=== PATIENT | male | born 1950 | race Two or more races ===

== ENCOUNTER 2024-09-30 11:35 | Emergency (ER) | payer OTHER, SELFPAY ==
--- NOTE | ~2024-09-30 | XR_ITS ---
EXAMINATION: XR CHEST 2 VIEWS HISTORY: cough COMPARISON: There are no prior studies available for comparison. FINDINGS: PA and lateral views of the chest are submitted. There is a calcified granuloma in the right upper lobe. The lungs are otherwise clear. There is no pleural effusion, pneumothorax, or pulmonary vascular congestion. The heart is normal in size. The bones are intact. There are surgical clips in the right upper quadrant. There is a partially visualized aortic stent graft. XR/XR chest 2V IMPRESSION: Right upper lobe granuloma. The lungs are otherwise clear. Electronically signed by: Ronal Whelan MD 09/30/2024 12:08 PM EDT
[2024-09-30 11:42] VITALS: BP 125/73; PULSE 81; RESP 16; TEMP 36.9; O2SAT 98; BMI 28.9
--- NOTE | 2024-09-30 11:47 | ED_ITS ---
HPI - General Adult General Chief complaint: Upper Respiratory Symptoms Stated complaint: Fever, body aches Time Seen by Provider: 09/30/24 14:35 Source: patient, family and healthcare interpreter Mode of arrival: ambulatory Limitations: no limitations History of Present Illness ED Provider: DR. Miles HPI narrative: 74-year-old male a presented with 3 days of nonproductive coughing, body ache, chest tightness, subjective fever. No sick contacts, no recent travel, no lower extremity swelling or tenderness. Related Data Previous Rx's ?Medication ?Instructions ?Recorded albuterol sulfate 90 mcg/actuation 2 inh inhalation Q4 -6H PRN 09/30/24 breath activated powder inhaler shortness of breath or wheezing #1 (ProAir RespiClick) ea azithromycin 250 mg tablet See Rx Instructions PO .COM PLEX #6 09/30/24 (Zithromax) tabs prednisone 20 mg tablet 20 mg PO BID #10 tabs Allergies Allergy/AdvReac Type Severity Reaction Status Date / Time No Known Allergies Allergy Verified 09/30/24 11:47 Review of Systems 2 Review of Systems: All other systems are reviewed and are negative Constitutional: Reports as per HPI and Reports no additional constitutional complaints Eyes: Reports as per HPI and Reports no additional eye complaints Reports system reviewed and no additional complaints, except as documented Cardiovascular: Reports as per HPI and Reports no additional cardiovascular complaints Respiratory: Reports as per HPI and Reports no additional respiratory complaints Gastrointestinal: Reports as per HPI and Reports no additional gastrointestinal complaints Genitourinary: Reports no additional female genitourinary complaints Musculoskeletal: Reports no additional musculoskeletal complaints Skin/Breast: Reports system reviewed and no additional complaints, except as docu Psychiatric: Reports no additional psychiatric complaints Endocrine: Reports no additional endocrine complaints Hematologic/Lymphatic: Reports no additional hematologic/lymphatic complaints Allergic/Immunologic: Reports no additional allergic/immunologic complaints Reports system reviewed and no additional complaints, except as documented and Reports Abnormal speech present [facility] Social History Social History Advance Directives: No Advance Directives Information Provided: Yes Do you have a plan to hurt others: No Plan Physical Exam ED Vital Signs: Vital Signs - 24 hr 09/30/24 11:42 09/30/24 20:00 Temperature 98.5 F 98.2 F Pulse Rate 81 73 Respiratory Rate 16 16 Blood Pressure 125/73 140/86 H Pulse Oximetry 98 98 Oxygen Delivery Method Room Air Room Air BMI result Body Mass Index 28.9 Vital signs have been reviewed and appear to be correct. Blood pressure elevated. Heart rate normal. Respiratory rate normal. Temperature normal. Oxygen saturation normal. Appearance: Alert. Oriented X3. No acute distress. Head: Normal external exam. Normocephalic. Atraumatic. No Olmedo signs noted. No raccoon eyes noted Eyes: PERRLA. EOMI. Conjunctiva and sclera normal. Eyelids normal. ENT: TM's Normal. Pharynx normal. Uvula midline. Moist mucous membranes. No trismus noted. No drooling noted. No muffled voice noted. Neck: Normal inspection. Neck supple. FROM. No adenopathy. Thyroid Normal. No meningeal signs. No neck mass noted. CVS: Normal heart rate and rhythm. Heart sound normal. No murmurs noted. Pulses normal throughout. Respiratory: No respiratory distress. Painless inspiration. Breath sounds normal. Mild diffuse expiratory wheezing with prolonged expiration, Chest nontender. No accessory muscle usage noted or decreased air movement noted. Abdomen: Soft and nontender. Bowel sounds normal in all 4 quadrants. No distention noted. No organomegaly noted. No visible injury noted. Back: No CVA tenderness. Full range of motion noted. Skin: Skin warm and dry. Normal skin color. Normal skin turgor. No rashes/lesions/lacerations noted. Extremities: No lower extremity edema. Extremities exhibit normal range of motion. Extremities nontender. Neuro: Oriented X 3. Cranial nerve exam: II-XII are grossly intact No motor deficit. No sensory deficit. Reflexes normal. Course Course Course Narrative: This is an RME: Additional HPI, ROS, PE not included below will be deferred to primary provider. RME assessment and note performed by: Maureen Eckert PA-C This is a 11-jsex-gcm-male, with a hx of [place] with stent placement several years ago, hyperlipidemia, and HIV+ who presents to the ER with complaints of cough, body aches, congestion, eye irtchiness, and headache x 3 days. Reporting no chest pain or shortness of breath. Lungs CTAB. Plan: Labs, EKG, CXR, further ER eval needed Reevaluation(s) Reevaluation #1: Acute bronchopneumonia start the patient on Z-Isma/prednisone/albuterol and follow-up with PCP. Time: 20:57 Medical Decision Making Differential Diagnosis Differential Diagnoses: The differential diagnosis associated with the presentation includes (Bronchopneumonia, pneumonia, pleural effusion, viral upper respiratory infection, electrolyte derangement, severe anemia.) Admission/Observation Consideration of admission/observation: Escalation of care including admission/observation considered Lab Data MDM Lab Attestation statement: I reviewed the patient's lab results. 09/30/24 12:13 09/30/24 12:13 Labs: Lab Results 09/30/24 Range/Units 12:13 WBC 3.4 L (4.8-10.8) X10*3/uL RBC 4.09 L (4.60-5.80) X10*6/uL Hgb 12.8 L (14.0-18.0) g/dl Hct 38.1 L (42.0-52.0) % MCV 93.2 (80.0-98.0) fL MCH 31.3 (27.0-33.0) pg MCHC 33.6 (31.0-36.0) g/dl RDW 13.0 (11.0-16.0) % Plt Count 144 L (160-400) X10*3/uL MPV 9.6 (9.4-12.4) fL Immature Gran % (Auto) 0.9 H (0.0-0.4) % Neut % (Auto) 45.8 (45-73) % Lymph % (Auto) 31.4 (20-40) % [place] % (Auto) 16.9 H (2-11) % Eos % (Auto) 4.1 H (0-4) % Baso % (Auto) 0.9 (0-2) % Lymph # (Auto) 1.1 L (1.2-4.9) X10*3/uL [place] # (Auto) 0.6 (0.1-1.2) X10*3/uL Eos # (Auto) 0.1 (0.0-0.4) X10*3/uL Baso # (Auto) 0.0 (0.0-0.2) X10*3/uL Abs Immat Gran (auto) 0.03 (0.00-0.03) X10*3/uL Absolute Neuts (auto) 1.6 L (2.0-8.3) x10*3/uL Absolute Nucleated RBC 0.000 (0.0-0.012) X10*3/uL Nucleated RBC % (auto) 0.0 (0.0-0.2) /100WBC Sodium 141 (135-145) mmol/L Potassium 3.9 (3.3-5.1) mmol/L Chloride 108 (96-108) mmol/L Carbon Dioxide 28 (22-29) mmol/L Anion Gap 9 L (12-20) BUN 9 (9-16) mg/dL Creatinine 1.50 H (0.5-1.4) mg/dL Estim Creat Clear Calc 40.3 Estimated GFR 46 Random Glucose 91 (60-115) mg/dL Calcium 9.2 (8.4-10.2) mg/dL Total Bilirubin 0.6 (0.0-1.0) mg/dL Direct Bilirubin 0.2 (0.0-0.5) mg/dL AST 32 (5-37) U/L ALT 31 (0-40) U/L Alkaline Phosphatase 78 (39-117) U/L Troponin I High Sens < 2.7 (<3.5-35.0) ng/L Total Protein 7.3 (6.5-8.0) g/dL Albumin 4.3 (3.5-5.0) g/dL Influenza Type A (PCR) NEGATIVE (Negative) Influenza Type B (PCR) NEGATIVE (Negative) RSV RNA Qual (PCR) NEGATIVE (Negative) SARS-CoV-2 RNA (RT-PCR) NEGATIVE (Negative) Independent Interpretation I performed an independent interpretation of an: Plain X-Ray (Chest:Right upper lobe granuloma. The lungs are otherwise clear. ) Radiology Impression Discussion of test interpretation with radiology: I have reviewed the radiologist's reading. Discharge Plan Discharge Clinical Impression: Bronchopneumonia Patient Disposition: Home, Self-Care Instructions: Acute Bronchitis (ED) Prescriptions: New azithromycin [Zithromax] 250 mg tablet See Rx Instructions .ROUTE .COMPLEX Qty: 6 0RF Rx Instructions: For 250 mg dose pack: take 500 mg today (day 1), then 250 mg for 4 days (days 2-5) prednisone 20 mg tablet 20 mg PO BID Qty: 10 0RF ProAir RespiClick 90 mcg/actuation aerosol powdr breath activated 2 inh inhalation Q4-6H PRN (Reason: shortness of breath or wheezing) Qty: 1 0RF Print Language: Telugu
--- NOTE | 2024-09-30 11:50 | ECG_ITS ---
Test Reason : CP Blood Pressure : */* mmHG Vent. Rate : 72 BPM Atrial Rate : 72 BPM P-R Int : 164 ms QRS Dur : 84 ms QT Int : 364 ms P-R-T Axes : 58 -7 2 degrees QTcB Int : 398 ms Normal sinus rhythm Normal ECG No previous ECGs available Referred By: Maureen Eckert Electronically Signed By: Damion Chung
[2024-09-30 12:16] LABS: MANUAL DIFF FLAG NO
[2024-09-30 12:18] LABS: Hematocrit 38.1 % (42.0-52.0); Hemoglobin 12.8 g/dl (14.0-18.0); Imm Gran Abs Auto 0.03 X10*3/uL (0.00-0.03); Imm Gran Pct Auto 0.9 % (0.0-0.4); Lymphocytes Absolute Auto 1.1 X10*3/uL (1.2-4.9); Mean Corpuscular HGB Conc 33.6 g/dl (31.0-36.0); Mean Corpuscular Hemoglobin 31.3 pg (27.0-33.0); Mean Corpuscular Volume 93.2 fL (80.0-98.0); NRBC Abs Auto 0.000 X10*3/uL (0.0-0.012); NRBC Pct Auto 0.0 /100WBC (0.0-0.2); Platelet Count 144 X10*3/uL (160-400); Red Blood Count 4.09 X10*6/uL (4.60-5.80); White Blood Count 3.4 X10*3/uL (4.8-10.8)
[2024-09-30 12:38] LABS: Alanine Aminotransferase 31 U/L (0-40); Albumin Level 4.3 g/dL (3.5-5.0); Alkaline Phosphatase 78 U/L (39-117); Anion Gap 9 (12-20); Aspartate Amino Transferase 32 U/L (5-37); Blood Urea Nitrogen 9 mg/dL (9-16); Calcium 9.2 mg/dL (8.4-10.2); Carbon Dioxide 28 mmol/L (22-29); Chloride 108 mmol/L (96-108); Creatinine Clr Calc Pharmacy 40.3; Estimated Glomerular Filt Rate 46; Potassium 3.9 mmol/L (3.3-5.1); Sodium 141 mmol/L (135-145); Total Protein 7.3 g/dL (6.5-8.0)
[2024-09-30 12:44] LABS: Troponin-I High Sensitivity < 2.7 ng/L (<3.5-35.0)
[2024-09-30 13:20] LABS: Resp Syncy Virus RNA Qual PCR NEGATIVE (Negative); SARS COV2 PCR INHOUSE NEGATIVE (Negative)
--- OUTSIDE RECORDS SUMMARY | 2024-09-30 19:48 | XMS_ITS | Clinical Summary ---
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 Name Role Phone Francesco Shaffer MD Primary Care Provider [phone] Source Comments PLEASE NOTE, if this patient is a minor, it may be UNLAWFUL to discuss sensitive information that is contained in these records (such as FAMILY PLANNING, MENTAL HEALTH or SUBSTANCE ABUSE) with the minor patient's parent or other person without the patient's specific authorization.[facility] Allergies No known active allergies Medications dolutegravir (TIVICAY) 50 mg tab Take by mouth HIV clinic 6 Active emtricitabine-ten ofovir alafen (DESCOVY) 200-25 mg tab Take by mouth HIV clinic 6 Active vitamin B-6 50 mg tablet 8 7 Active nitroglycerin (NITROSTAT) 0.3 mg SL tabletIndications :CAD S/P percutaneous coronary angioplasty DISSOLVE 1 TABLET UNDER TONGUE EVERY 5 MINUTES NEEDED FOR CHEST PAIN FOR UP TO 3 DOSES. IF NO RELIEF CALL 911 100 Tab 1 8 Active loratadine (CLARITIN) 10 mg tabletIndications :Seasonal allergies TAKE 1 TAB BY MOUTH ONCE DAILY NEEDED FOR ALLERGIES 30 Tab 1 9 Active fluticasone propionate (FLONASE) 50 mcg/actuation nasal sprayIndications: Seasonal allergies SPRAY 1 SPRAY INTO EACH NOSTRIL TODOS LOS HARDY 16 mL 2 9 Active clotrimazole-beta methasone (LOTRISONE) 1-0.05 % creamIndications: Rash of groin Apply topically 2 (two) times daily 15 g 1 04/17/202 0 Active ibuprofen 600 mg tabletIndications :Back pain, unspecified back location, unspecified back pain laterality, unspecified chronicity Take 1 Tab by mouth 4 (four) times daily as needed for pain 60 Tab 1 0 Active zolpidem (AMBIEN) 10 mg tablet Take 10 mg by mouth every evening 0 Active clonazePAM (KLONOPIN) 1 mg tablet Take 1 mg by mouth as needed 0 Active BANOPHEN 25 mg capsuleIndication s:Urticarial rash TAKE 1 CAPSULE BY MOUTH NIGHTLY AT BEDTIME NEEDED FOR ITCHING 30 Capsule 1 3 Active BIKTARVY 50-200-25 mg tab TOME LILIA TABLETA TODOS LOS D 3 Active tamsulosin (FLOMAX) 0.4 mg 24 hr capsule TAKE 1 CAPSULE BY MOUTH 1 TIME EACH DAY. 3 Active triamcinolone (KENALOG) 0.5 % creamIndications: Urticarial rash Apply topically 2 (two) times daily 454 g 1 3 Active hydrOXYzine HCL (ATARAX) 25 mg tabletIndications :Urticarial rash TAKE 1 TABLET BY MOUTH 3 TIMES DAILY NEEDED FOR ITCHING. 60 Tablet 1 4 Active hydrocortisone 2.5 % cream Apply topically 2 (two) times daily 30 g 1 4 Active aspirin 81 mg chewable tabletIndications :CAD S/P percutaneous coronary angioplasty TOME LILIA TABLETA TODOS LOS HARDY 90 Tablet 5 4 Active metoprolol tartrate (LOPRESSOR) 25 mg tabletIndications :Primary hypertension Take 1 Tablet by mouth once daily 90 Tablet 5 4 Active rosuvastatin (CRESTOR) 40 mg tabletIndications :Hypercholesterol emia Take 1 Tablet by mouth nightly at bedtime 90 Tablet 5 4 Active acetaminophen (TYLENOL) 500 mg tablet TOME 1 TABLETA POR VIA ORAL CADA 6 HORAS CUANDO SEA NECESARIO PARA EL DOLOR 60 Tablet 1 4 Active Active Problems Problem Noted Date Diagnosed Date Aneurysm of infrarenal abdominal aorta ([facility] V24) 12/22/2021 Overview (10/07/2022): Sees Vascular Surgeon Surgery October 02 2022 Endovascular [facility] 12/19/2021 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 X 3.9 cm = Referred to Vascular Surgeon Primary hypertension 12/05/2021 Seasonal allergies 06/25/2018 Hyperlipidemia 11/01/2016 Overview (11/01/2016): [facility] uro Mixed hyperlipidemia with anais bartolucci Chronic hepatitis C without hepatic coma ([facility]) 08/16/2016 Overview (08/16/2016): Followed by ID CKD (chronic kidney disease) stage 3, GFR 30-59 ml/min ([facility]) 08/16/2016 Overview (08/16/2016): Seen by [facility] nephrology Thoracic aneurysm without mention of rupture Overview (02/16/2016): monitored by [facility] for thoracic Aortic aneurysm currently measuring 3.7 cm Anxiety and depression 02/06/2016 Insomnia 02/06/2016 CAD S/P percutaneous coronary angioplasty 2015 Overview (10/15/2018): Being seen by [facility], will be monitored by [facility] for thoracic Aortic aneurysm currently measuring 3.7 cm Pt had a threatened inferior [place] in 01/2016- required stent eluting stent- dc on plavix, BB, statin Sees Cardiology [facility] Recent Exercise Myocardial Perfusion Scan 10/12/18 normal. HIV disease ([facility]) 08/29/2015 Overview (05/29/2016): Since 1989 . Pt sees ID specialist Dr. Lynette Sawyer and is on medication Resolved Problems Problem Noted Date Diagnosed Date Resolved Date Creatinine elevation 09/08/2015 022 Overview (09/14/2015): Sees [facility] Nephrology Immunizations Immunization Administration Dates Next Due Flu, Adjuvant, 65y+ (Fluad) 01/18/2021 Flu, Cell Culture based, Mul ti Dose, 6m+, Flucelvax 03/02/2018 Flu, Multi Dose 0.5 ML 11/05/2019,10/30/2018 INFLUENZA, SEASONAL, INJECTABLE 11/21/2021 Moderna COVID-19 Vaccine, re d cap blue label, 12+ Primary Series 05/06/2020,04/08/2020 PNEUMOCOCCAL CONJUGATE PCV 7 02/24/2013 PNEUMOCOCCAL POLYSACCHARIDE PPV23 (Pneumovax 23) 09/03/2021,07/18/2016,08/01/2011 ZOSTER VACCINE, RECOMBINANT (SHINGRIX) 5,11/24/2023 Family History Relation Name Status Comments Brother Alive Father Mother Sister Alive Social History Tobacco Use Types Packs/Day Years Used Date Smoking Tobacco: Former Cigarettes Passive Smoke Exposure: Never Smokeless Tobacco: Never Alcohol Use Standard Drinks/Week Comments No 0 (1 standard drink = 0.6 oz pur e alcohol) Social Connections Answer Date Recorded Connectedness 0 12/05/2021 Financial Resource Strain Answer Date R ecorded Financial Resource Strain 0 2021 Stress Answer Date Recorded Stress 0 12/05/2021 Physical Activity Answer Date Recorded Physical Activity 0 10/10/2018 Food Insecurity Answer Date Recorded Food 0 12/05/2021 Transportation Needs Answer Date Record ed Transportation 0 12/05/2021 Housing Stability Answer Date Recorded Housing 0 12/05/2021 Safety and Environment Answer Date Erik rded Safety 0 12/05/2021 Utilities Answer Date Recorded Utilities 0 12/05/2021 Employment Answer Date Recorded Stress 0 12/05/2021 Sex and Gender Information Value Date Recorded Sex Assigned at Male 05/07/2017 6:25 AM PDT Legal Sex Male 5:15 AM PDT Gender Identity Male 05/07/2017 6:25 AM PDT Sexual Orientation Straight 05/07/2017 6: 25 AM PDT Last Filed Vital Signs Vital Sign Reading Time Taken Comments Blood Pressure 118/72 05/19/2024 9:39 AM EDT Pulse 86 05/19/2024 9:39 AM EDT Temperature 36.7 C (98.1 F) 05/19/2024 9:39 AM EDT Respiratory Rate 16 05/19/2024 9:39 AM EDT Oxygen Saturation 99% 05/19/2024 9:39 AM EDT Inhaled Oxygen Concentration - - Weight 73 kg (161 lb) 05/19/2024 9:39 AM EDT Height 165.1 cm (5' 5 ) 05/19/2024 9:39 AM EDT Body Mass Index 26.79 05/19/2024 9:39 AM EDT Plan of Treatment Health Maintenance Due Date Last Done Comments Medicare Annual Wellness Visit 02/06/1968 Imm-DTaP/Tdap/Td (1 - Tdap) 1969 Imm-Hepatitis A (1 of 2 - Risk 2-dose series) 1969 CT Colonography 1995 FIT/gFOBT 1995 Fecal DNA 1995 Flexible Sigmoidoscopy 1995 Imm-Hepatitis B (1 of 3 - Risk 3-dose series) 2010 Imm-Pneumococcal 50+ (3 of 3 - PCV) 09/03/2022 09/03/2021, 07/18/2016, 02/24/2013, Additional history exists [id number] ( - season) 2023 05/06/2020, 04/08/2020 Syphilis Screening 05/18/2024 05/19/2023 (M anaged by Outside Provider) Lipid Screening 06/23/2024 06/24/2023, 08/2023, 12/05/2021, Additional history exists Depression Monitoring 08/18/2024 05/19/2024 , 11/24/2023, 06/20/2023, Additional history exists Imm-Influenza (#1) 2024 11/21/2021, 1 03/21/2020, 11/05/2019, Additional history exists Tobacco Screening 11/23/2024 11/24/2023 Falls Prevention 05/19/2025 05/19/2024, 04/2023, 12/05/2021 Diabetes Screening 03/15/2027 03/15/2024, 0 06/24/2023, 06/24/2023, Additional history exists Colonoscopy 05/04/2034 05/04/2024, 07/18 (Managed by Outside Provider) Colorectal Cancer Screening 05/04/2034 Abdominal Aortic Aneurysm Screening Completed 12/19/2021 Alcohol and Drug Screen Completed 05/20/19, 06/20/2023, 03/08/2022, Additional history exists Imm-Zoster, Recombinant Completed 05/19/2024, 11/23 Hepatitis B Screening Discontinued Imm-HIB Aged Out No longer eligi ble based on patient's age to complete this topic Imm-Meningococcal Discontinued Procedures Procedure Name Priority Date/Time Associated Diagnosis Comments IMAGING SCANNED DOCUMENT 08/26/2024 3:00 AM EDT REFERRAL FOR COLONOSCOPY Routine 05/04/2024 3:00 AM EDT Screen for colon cancer HEMOGLOBIN GLYCOSYLATED A1C Routine 06/24/2023 8:40 AM EDT Routine general medical examination at a health care facility LIPID PANEL Routine 06/24/2023 8:40 AM EDT Routine general medical examination at a health care facility Other hyperlipidemia Primary hypertension US ABDOMINAL AORTA REAL TIME SCREEN STUDY AAA Routine 12/19/2021 3:00 AM EDT Health care maintenance from Last 3 Months or Most Recently Relevant to Health Maintenance Results * IMAGING SCANNED DOCUMENT (08/26/2024 3:00 AM EDT) 08/26/2024 3:00 AM EDT us Francesco Shaffer MD SCAN IMAGING Final Result * REFERRAL FOR COLONOSCOPY (05/04/2024 3:00 AM EDT) 05/04/2024 3:00 AM EDT us Francesco Shaffer MD REFERRAL Final Result * HEMOGLOBIN GLYCOSYLATED A1C (06/24/2023 8:40 AM EDT) HEMOGLOBIN A1C 5.3 <5.7 % of total Hgb [facility] Comment: For the purpose of screening for the presence of diabetes: <5.7% Consistent with the absence of diabetes 5.7-6.4% Consistent with increased risk for diabetes (prediabetes) > or =6.5% Consistent with diabetes This assay result is consistent with a decreased risk of diabetes. Currently, no consensus exists regarding use of hemoglobin A1c for diagnosis of diabetes in children. According to [place] Diabetes Association (ADA) guidelines, hemoglobin A1c <7.0% represents optimal control in non- diabetic patients. Different metrics may apply to specific patient populations. Standards of Medical Care in Diabetes(ADA). Blood Blood / Unknown 06/24/2023 8 :40 AM EDT 06/24/2023 8:40 AM EDT Narrative [facility] - 06/25/2023 6:24 PM EDT FASTING:YES Francesco Shaffer MD LAB - BLOOD DRAW Edited Result - Final [facility] [address] [place] [id number], [facility] [address] [place] [id number] * LIPID PANEL (06/24/2023 8:40 AM EDT) [facility] Signature CHOLESTEROL, TOTAL 136 <200 mg/dL [facility] HDL CHOLESTEROL 50 > OR = 40 mg/dL [facility] TRIGLYCERIDES 130 <150 mg/dL [facility] LDL-CHOLESTEROL 65 99 mg/dL (calc) [facility] Comment: Reference range: <100 Desirable range <100 mg/dL for primary prevention; <70 mg/dL for patients with CHD or diabetic patients with > or = 2 CHD risk factors. LDL-C is now calculated using the Milo-Mitchell calculation, which is a validated novel method providing better accuracy than the Friedewald equation in the estimation of LDL-C. Milo CEDENO et al. ARIADNE. 2013;310(19): 9214-3199 (http://education.ThirdSpaceLearning/faq/QIW032) CHOL/HDLC RATIO 2.7 <5.0 (calc) [facility] NON-HDL CHOLESTEROL 86 <130 mg/dL (calc) [facility] Comment: For patients with diabetes plus 1 major ASCVD risk factor, treating to a non-HDL-C goal of <100 mg/dL (LDL-C of <70 mg/dL) is considered a therapeutic option. Blood Blood / Unknown 06/24/2023 8 :40 AM EDT 06/24/2023 8:40 AM EDT Narrative [facility] - 06/25/2023 6:24 PM EDT FASTING:YES Francesco Shaffer MD LAB - BLOOD DRAW Final Result [facility] [address] [address], [facility] [address] [place] [address] * US ABDOMINAL AORTA REAL TIME SCREEN STUDY AAA (12/19/2021 3:00 AM EDT) 12/19/2021 3:00 AM EDT Francesco Shaffer MD IMG ULTRASOUND Edited Result - Final from Last 3 Months or Most Recently Relevant to Health Maintenance Insurance [facility] Care Teams [employer] Reclamation Engineer Relationship Specialty Start Date End Date Francesco Shaffer MD [address] [place] [phone] PCP - General Internal Medicine 03/06/17
--- OUTSIDE RECORDS SUMMARY | 2024-09-30 19:48 | XMS_ITS | Encounter Summary ---
Author Organization [facility] Address [address] [facility] [facility] [address] [place] [address] Phone Care Team Providers Care Office Service Coordinator Name Role Phone Unavailable Primary Care Provider Unavailabl e Reason for Visit * Reason Comments Med Refill Encounter Details Date Type Department Care Team (Late Contact Info) Description 12/12/2022 Refill [facility] [address] [facility] [address] [place] [address] Benja Peace MD [address] [facility] [address] [place] [address] Stage 3a chronic kidney disease (HCC) Social History Tobacco Use Types Packs/Day Years Used Date Smoking Tobacco: Former Cigarettes Q uit: 02/17/1995 Comments:Smoking History Inf o:Every day Alcohol Use Standard Drinks/Week Comments No 0 (1 standard drink = 0.6 oz pur e alcohol) Sex and Gender Information Value Date Recorded Sex Assigned at Not on file Legal Sex Male 4:44 PM EST Gender Identity Not on file Sexual Orientation Not on file documented as of this encounter Plan of Treatment Upcoming Encounters Date Type Department Care Team (Late Contact Info) Description 11/01/2024 2:00 PM EDT Office Visit [facility], [address] [place] [address] Zi Das MD [address] [place] [address] documented as of this encounter Visit Diagnoses Diagnosis Stage 3a chronic kidney disease (HCC) documented in this encounter
--- OUTSIDE RECORDS SUMMARY | 2024-09-30 19:48 | XMS_ITS | Patient Health Record ---
Author Organization [facility] Address [address], [place] [id number] Care Team Providers Care Cut Out Marker Name Role Phone [facility] Provi maria guadalupe [phone] Lidia Gutiérrez Unavailable [phone] Patti Arreola Unavailable [phone] Reason For Referral No Information Encounters Encounter Location Date Provider Diagnosis [facility] [address] [place], [place] [phone] 09/07/2024 Patti Arreola [facility] [address] [place] [phone] 07/09/2024 Lidia Gutiérrez Plan Of Treatment No Information Insurance Providers Payer Name Payer Address Payer Phone Subscriber Number Group Number Insured Name Patient Relationship to Insured Coverage Start Date Coverage End Date [facility] [address] [place] [id number] [employer] Self - patient is the insured
--- OUTSIDE RECORDS SUMMARY | 2024-09-30 19:48 | XMS_ITS | Clinical Summary ---
Author Organization [facility] Address [address] [place] [address] Phone Care Team Providers Care Cardiovascular Technologist Name Role Phone Francesco Shaffer MD Primary Care Provider [phone] Allergies No known active allergies Medications acetaminophen (TYLENOL) 325 mg capsule 325 mg daily. Active ibuprofen (ADVIL,MOTRIN) 600 mg tablet Take 1 Tablet by mouth every 6 hours as needed. Active rosuvastatin calcium (ROSUVASTATIN ORAL) Take 40 mg by mouth daily. Active aspirin 81 mg chewable tablet 81 mg daily. 0 Active bictegravir-emtr icitabine-tenofo vir alafenamide (Biktarvy) 50-200-25 mg per tablet Take 1 Tablet by mouth daily. Active clonazePAM (KlonoPIN) 1 mg tablet 1 mg daily. Active clotrimazole-bet amethasone (LOTRISONE) 1-0.05 % cream Apply topically 2 times daily. Active diphenhydrAMINE (BENADRYL) 25 mg capsule Take 1 Capsule by mouth at bedtime. Active dolutegravir (TIVICAY) 50 mg tablet 50 mg daily. Active emtricitabine-te nofovir alafenamide (Descovy) 200-25 mg per tablet Take by mouth. A ctive fluticasone propionate (FLONASE) 50 mcg/actuation nasal spray 2 Sprays by Each Nare route daily. Active hydrocortisone 2.5 % cream 2 times daily. 4 Active hydrOXYzine HCL (ATARAX) 25 mg tablet Take 1 Tablet by mouth 3 times daily as needed. 4 Active loratadine 10 mg capsule Take by mouth. Activ e metoprolol succinate (TOPROL-XL) 25 mg 24 hr tablet 25 mg daily. 9 Active nitroglycerin (NITROSTAT) 0.[address] 1 Tablet under the tongue every 5 minutes as needed. Active pyridoxine (B-6) 50 mg tablet Take by mouth. Ac tive tamsulosin (FLOMAX) 0.4 mg 24 hr capsule Take 1 Capsule by mouth daily. Active triamcinolone (KENALOG) 0.5 % cream Apply topically 2 times daily. Active zolpidem (AMBIEN) 10 mg tablet 10 mg daily. Active Active Problems Problem Noted Date Diagnosed Date Anxiety and depression 01/01/2022 CKD (chronic kidney disease) 01/01/2022 HIV (human immunodeficiency virus infection) ([facility] V24, [facility] V28) 01/01/2022 Insomnia 01/01/2022 Primary hypertension 01/01/2022 Overview (01/07/2024): Last Assessment & Plan: Patient's blood pressure is well controlled today with a reading 128/82. We will continue his current medication regimen. Seasonal allergies 01/01/2022 Thoracic aortic aneurysm, wi thout rupture, unspecified ([facility] V24) 01/01/2022 Overview (01/07/2024): Last Assessment & Plan: The patient has a history of abdominal aortic aneurysm followed by vascular surgery Dr. Salguero. His blood pressure is well controlled today. He is being considered for EVAR. CAD (coronary artery disease) 11/20/2020 Overview (01/07/2024): Last Assessment & Plan: The patient has a history of coronary artery disease. He denies any exertional symptoms. He continues on cardioprotective medical therapy with metoprolol, aspirin, and rosuvastatin. We will continue current therapies. Patient advised to seek emergency medical attention by calling 911 if they were to develop severe dyspnea, chest pain that did not resolve with rest or nitroglycerin, or if they were to faint. Hyperlipidemia 11/20/2020 Overview (01/07/2024): Last Assessment & Plan: The patient has a history of hyperlipidemia as well as a history of coronary artery disease. His last LDL cholesterol was noted to be 43. We will continue his current dose of rosuvastatin at 40 mg orally daily. No changes to medical therapies. Encounters Date Type Department Care Team Description 08/26/2024 8:39 AM EDT - 08/26/2024 11:59 PM EDT Hospital Encounter [facility] CT Scan [address] [place] [address] Infrarenal abdominal aortic aneurysm (AAA) without rupture ([facility] V24) Discharge Disposition: Home or Self Care from Last 3 Months Immunizations Name Administration Dates Next Due Moderna SARS-CoV-2 COVID-19, mRNA, LNP-S, preservative free 05/06/2020,04/08/2020 Surgical History Surgery Date Site/Laterality Comments OTHER SURGICAL HISTORY 10/02/2022 Right PROCEDURE: SD OPN FEM ART EXPOS DLVR EVASC PROSTH UNI OTHER SURGICAL HISTORY 10/02/2022 Left PROCEDURE: SD OPN FEM ART EXPOS DLVR EVASC PROSTH UNI OTHER SURGICAL HISTORY 10/02/2022 PROCEDURE: SD EVASC RPR DPLMNT [id number] NDGFT APPENDECTOMY Medical History Medical History Date Comments HIV (human immunodeficiency virus infection) (CM S/HCC V24, CMS/HCC V28) Anxiety CAD (coronary artery disease) CKD (chronic kidney disease) Chronic hepatitis C (CMS/HCC V24, [facility]/HCC V28) Hyperlipidemia Hypertension Social History Tobacco Use Types Packs/Day Years Used Date Smoking Tobacco: Former Smokeless Tobacco: Former Alcohol Use Standard Drinks/Week Comments No 0 (1 standard drink = 0.6 oz pur e alcohol) Interpersonal Safety Answer Date Record ed Physical Abuse 05/04/2024 Verbal Abuse 05/04/2024 Sex and Gender Information Value Date Recorded Sex Assigned at Male 05/03/2024 9:08 AM EDT Legal Sex Male 9:15 AM EST Gender Identity Male 05/03/2024 9:08 AM EDT Sexual Orientation Straight 05/03/2024 9: 08 AM EDT Obstetrics History Last Filed Vital Signs Vital Sign Reading Time Taken Comments Blood Pressure 137/88 05/04/2024 12:51 PM EDT Pulse 68 05/04/2024 12:51 PM EDT Temperature 36.1 C (96.9 F) 05/04/2024 12:31 PM EDT Respiratory Rate 20 05/04/2024 12:51 PM EDT Oxygen Saturation 100% 05/04/2024 12:51 PM EDT Inhaled Oxygen Concentration - - Weight 78.9 kg (174 lb) 04/27/2024 11:00 AM EDT Height 167.6 cm (5' 6 ) 04/27/2024 11:00 AM EDT Body Mass Index 28.08 04/27/2024 11:00 AM EDT Plan of Treatment Health Maintenance Due Date Last Done Comments Meningococcal ACWY Vaccine (1 - Risk 2-dose series) 02/06/1952 MMR Vaccines (1 of 2 - Risk 2-dose series) 02/06/1968 DTaP,Tdap,and Td Vaccines (1 - Tdap) 1969 Hepatitis A Vaccines (1 of 2 - Risk 2-dose series) 1969 Hepatitis B Vaccines (1 of 3 - Risk 3-dose series) 2010 RSV Immunization Adult Patients (1 - Risk 60-74 years 1-dose series) 2010 COVID-19 Vaccine (3 - Moderna risk series) 06/03/2020 05/06/2020, 04/08/2020 Medicare Annual Wellness Visit 01/20/2022 Social Influencers of Health Screening 01/20/2022 Pneumococcal Vaccine: 50+ Years (3 of 3 - PCV) 09/03/2022 09/03/2021, 07/18/2016, 08/01/2011 Depression Screening 02/18/2024 Influenza Vaccine (#1) 2024 , 01/18/2021, 11/05/2019, Additional history exists Falls Risk Assessment 05/04/2025 05/04/2024 Hypertension/CHF/CAD Annual BMP Blood Test 08/25/2025 08/25/2024, 03/15/2024, 06/24/2023 Cholesterol Screening (Lipid Panel) 06/23/2028 06/24/2023, 06/24/2023, 06/24/2023, Additional history exists Colorectal Cancer Screening: Colonoscopy 05/04/2029 05/04/2024 Hepatitis C Screening Completed 06/24/2023 Zoster Vaccines Completed 05/19/2024, 11/24/2023 HIB Vaccines Aged Out No longer eligi ble based on patient's age to complete this topic HPV Vaccines Aged Out No longer eligi ble based on patient's age to complete this topic IPV Vaccines Aged Out No longer eligi ble based on patient's age to complete this topic Meningococcal B Vaccine Aged Out No l onger eligible based on patient's age to complete this topic RSV Immunization Patients Under 20 months Aged Out No longer eligible based on patient's age to complete this topic Varicella Vaccines Aged Out No longer eligible based on patient's age to complete this topic Procedures Procedure Name Priority Date/Time Associated Diagnosis Comments CT ANGIO ABDOMEN PELVIS WO AND/OR W CONTRAST Routine 08/26/2024 9:15 AM EDT Infrarenal abdominal aortic aneurysm (AAA) without rupture (CMS/HCC V24) CREATININE, SERUM Routine 08/25/2024 10: 42 AM EDT Infrarenal abdominal aortic aneurysm (AAA) without rupture (CMS/HCC V24) BUN Routine 08/25/2024 10:42 AM EDT Infrarenal abdominal aortic aneurysm (AAA) without rupture (CMS/HCC V24) COLONOSCOPY Routine 05/04/2024 12:30 PM EDT Colon cancer screening HM HEPATITIS C SCREENING Routine 06/24/2023 LIPID PANEL Routine 06/24/2023 from Last 3 Months or Most Recently Relevant to Health Maintenance Results * CT Angio Abdomen Pelvis wo and/or w Contrast (08/26/2024 9:15 AM EDT) Anatomical Region Laterality Modality Body Computed Tomogra phy 08/26/2024 12:5 5 PM EDT Impressions 08/26/2024 1:41 PM EDT Status post aortic stent graft placement with endoleak noted on delayed phase imaging most likely a type II or III. Aneurysm measures up to 4.2 cm coronally which is mildly increased from CTA study dated February 04, 2023 with measurement of 4 cm. On CTA study from July 11, 2022 prior to stent graft placement aneurysm measures up to 4.7 cm. -------- FINAL REPORT -------- Dictated By: Zeny Eddy Dictated Date: 08/26/2024 12:55 ET Assigned Physician: Zeny Eddy Reviewed and Electronically Signed By: Zeny Eddy Signed Date: 08/26/2024 13:41 ET Workstation ID: [id number] Transcribed By: Self Edit Transcribed Date: 08/26/2024 12:55 ET Narrative 08/26/2024 1:41 PM EDT INDICATION: Abdominal aortic aneurysm FINDINGS: CTA of the abdomen and pelvis obtained with a total of 90 cc Isovue- 370 administered intravenously without incident. Scanner: [employer] frontier 128 VCT Dose reduction technique: ASIR (Adaptive statistical iterative reconstruction) and/or AEC (automated exposure control) Dose: total exam DLP 1831 mGY per cm COMPARISON: Compared to multiple prior studies most recent from September 21, 2023. Lung bases demonstrate mild atelectatic changes. Bony structures are normal for the patient's age. Liver, spleen, pancreas, adrenal glands and kidneys are unchanged. Multiple renal cysts are again noted. Status post cholecystectomy. Unopacified stomach, small bowel and large bowel unremarkable. No free air or free fluid in the abdomen or pelvis. Urinary bladder unremarkable. Well-positioned aortic stent graft with aneurysm infrarenally measuring 3.5 cm x 4 cm axially, 4.2 cm coronally and 4 cm sagittally with similar to the prior study. No endoleak noted on the arterial phase imaging however definite endoleak noted on delayed phase imaging, type undetermined but likely a type II or III. Procedure Note Zeny Eddy MD - 08/26/2024 INDICATION: Abdominal aortic aneurysm FINDINGS: CTA of the abdomen and pelvis obtained with a total of 90 ccIsovue-370 administered intravenously without incident. Scanner: [employer] 128 VCT Dose reduction technique: ASIR (Adaptive statistical iterativereconstruction) and/or AEC (automated exposure control) Dose: total exam DLP 1831 mGY per cm COMPARISON: Compared to multiple prior studies most recent from September. Lung bases demonstrate mild atelectatic changes. Bony structures arenormal for the patient's age. Liver, spleen, pancreas, adrenal glands and kidneys are unchanged.Multiple renal cysts are again noted. Status post cholecystectomy. Unopacified stomach, small bowel and large bowel unremarkable. No free airor free fluid in the abdomen or pelvis. Urinary bladder unremarkable. Well-positioned aortic stent graft with aneurysm infrarenally measuring3.5 cm x 4 cm axially, 4.2 cm coronally and 4 cm sagittally with similarto the prior study. No endoleak noted on the arterial phase imaginghowever definite endoleak noted on delayed phase imaging, typeundetermined but likely a type II or III. IMPRESSION: Status post aortic stent graft placement with endoleak noted on delayedphase imaging most likely a type II or III. Aneurysm measures up to 4.2 cm coronally which is mildly increased fromCTA study dated February 04, 2023 with measurement of 4 cm. On CTA studyfrom July 11, 2022 prior to stent graft placement aneurysm measures up to4.7 cm. -------- FINAL REPORT -------- Dictated By: Zeny Eddy Dictated Date: 08/26/2024 12:55 ET Assigned Physician: Zeny Eddy Reviewed and Electronically Signed By: Zeny Eddy Signed Date: 08/26/2024 13:41 ET Workstation ID: [id number] Transcribed By: Self Edit Transcribed Date: 08/26/2024 12:55 ET Oscar Salguero MD [place] [facility] PROCEDURES Final Result * (ABNORMAL) Creatinine (08/25/2024 10:42 AM EDT) Creatinine 1.80(H) 0.70 - 1.30 mg/dL LAB CHEMISTRY METHOD 08/25/2024 1:56 PM EDT [facility] eGFR 39(L) >=60 mL/min/1. 73m2 LAB CHEMISTRY METHOD 08/25/2024 1:56 PM EDT [facility] Comment:Calculation based on the Chronic Kidney Disease Epidemiology Collaboration (CKD-EPI) equation refit without adjustment for race. Blood Venous blood specimen / Unknown Venipuncture / Unknown 08/25/2024 10:42 AM EDT 08/25/2024 11:16 AM EDT us Oscar Salguero MD LAB BLOOD ORDERABLES Final Resu lt Performing Organization Address City/[facility]/ZIP Co de Phone Number [facility] [address] [place] [address], [place] [phone] * BUN (08/25/2024 10:42 AM EDT) BUN 16 5 - 25 mg/dL LAB CHEMISTRY METHOD 08/25/2024 1:56 PM EDT [facility] Blood Venous blood specimen / Unknown Venipuncture / Unknown 08/25/2024 10:42 AM EDT 08/25/2024 11:16 AM EDT us Oscar Salguero MD LAB BLOOD ORDERABLES Final Resu lt Performing Organization Address [facility] Co de Phone Number [facility] [address] [place] [address], [place] [phone] * COLONOSCOPY Anesthesia - MAC; [facility] ENDOSCOPY (05/04/2024 12:30 PM EDT) Anatomical Region Laterality Modality Endoscopy 05/04/2024 12:0 4 PM EDT Impressions 05/04/2024 12:31 PM EDT - Hemorrhoids found on perianal exam. - Two 7 to 8 mm polyps in the transverse colon, removed with a cold snare. Resected and retrieved. - The examination was otherwise normal on direct and retroflexion views. Recommendation: - - Discharge patient to home. - High fiber diet. - Continue present medications. - Await pathology results. - Repeat colonoscopy for surveillance based on pathology results. Narrative 05/04/2024 12:31 PM EDT [facility] GI Patient Name: Star Khan Procedure Date: 05/04/2024 12:04 PM Date of : 1950 Age: 74 Gender: Male Note Status: Finalized Attending MD: Brown Sparks DO, [id number] Procedure Date No Time: 05/04/2024 Procedure: Colonoscopy Indications: Screening for colorectal malignant neoplasm Providers: Brown Sparks DO Referring MD: Francesco Shaffer MD Medicines: Monitored Anesthesia Care Complications: No immediate complications. Estimated blood loss: Minimal. Estimated Blood Loss: Estimated blood loss was minimal. Procedure: Pre-Anesthesia Assessment: - - Prior to the procedure, a History and Physical was performed, and patient medications and allergies were reviewed. The patient is competent. The risks and benefits of the procedure and the sedation options and risks were discussed with the patient. All questions were answered and informed consent was obtained. Patient identification and proposed procedure were verified by the physician, the nurse, the anesthesiologist, the nurse research and the finishing technician in the pre-procedure area in the endoscopy suite. Mental Status Examination: alert and oriented. Airway Examination: normal oropharyngeal airway and neck mobility. Respiratory Examination: clear to auscultation. CV Examination: normal. Prophylactic Antibiotics: The patient does not require prophylactic antibiotics. Prior Anticoagulants: The patient has taken no anticoagulant or antiplatelet agents. ASA Grade Assessment: II - A patient with severe systemic disease. After reviewing the risks and benefits, the patient was deemed in satisfactory condition to undergo the procedure. The anesthesia plan was to use monitored anesthesia care (MAC). Immediately prior to administration of medications, the patient was re-assessed for adequacy to receive sedatives. The heart rate, respiratory rate, oxygen saturations, blood pressure, adequacy of pulmonary ventilation, and response to care were monitored throughout the procedure. The physical status of the patient was re-assessed after the procedure. After I obtained informed consent, the scope was passed under direct vision. Throughout the procedure, the patient's blood pressure, pulse, and oxygen saturations were monitored continuously.The Colonoscope was introduced through the anus and advanced to the cecum, identified by appendiceal orifice and ileocecal valve. The colonoscopy was performed without difficulty. Findings: Hemorrhoids were found on perianal exam. Two sessile polyps were found in the transverse colon. The polyps were 7 to 8 mm in size. These polyps were removed with a cold snare. Resection and retrieval were complete. Verification of patient identification for the specimen was done. Estimated blood loss was minimal. The exam was otherwise without abnormality on direct and retroflexion views. Procedure Code(s): --- Professional --- 78159, Colonoscopy, flexible; with removal of tumor(s), polyp(s), or other lesion(s) by snare technique Diagnosis Code(s): --- Professional --- D12.3, Benign neoplasm of transverse colon (hepatic flexure or splenic flexure) Z12.11, Encounter for screening for malignant neoplasm of colon K64.9, Unspecified hemorrhoids CPT copyright 2020 [employer]. All rights reserved. The codes documented in this report are preliminary and upon online activist review may be revised to meet current compliance requirements. BROWN Sparks DO 05/04/2024 12:31:06 PM This report has been signed electronically.Brown Sparks DO Number of Addenda: 0 Note Initiated On: 05/04/2024 12:04 PM Scope Withdrawal Time: 0 hours 6 minutes 41 seconds Scope In: 12:18:17 PM Scope Out: 12:29:19 PM Endoscopy Department at [facility] - [address] [place] [id number] Procedure Note Brown Sparks DO - 05/04/2024 [facility] GI Patient Name: Star Khan Procedure Date: 05/04/2024 12:04 PM Date of : 1950 Age: 74 Gender: Male Note Status: Finalized Attending MD: Brown Sparks DO, [id number] Procedure Date No Time: 05/04/2024 Procedure: Colonoscopy Indications: Screening for colorectal malignant neoplasm Providers: Brown Sparks DO Referring MD: Francesco Shaffer MD Medicines: Monitored Anesthesia Care Complications: No immediate complications. Estimated blood loss: Minimal. Estimated Blood Loss: Estimated blood loss was minimal. Procedure: Pre-Anesthesia Assessment: - - Prior to the procedure, a History and Physicalwas performed, and patient medications and allergieswere reviewed. The patient is competent. The risks and benefits of the procedure and the sedation optionsand risks were discussed with the patient. Allquestions were answered and informed consent was obtained. Patient identification and proposed procedure were verified by the physician, the nurse, the anesthesiologist, the nurse research and thetechnician in the pre-procedure area in the endoscopy suite. Mental Status Examination: alert and oriented.Airway Examination: normal oropharyngeal airway and neck mobility. Respiratory Examination: clear to auscultation. CV Examination: normal. Prophylactic Antibiotics: The patient does not requireprophylactic antibiotics. Prior Anticoagulants: The patient has taken no anticoagulant or antiplatelet agents. ASA Grade Assessment: II - A patient with severesystemic disease. After reviewing the risks and benefits,the patient was deemed in satisfactory condition to undergo the procedure. The anesthesia plan was touse monitored anesthesia care (MAC). Immediately priorto administration of medications, the patient was re-assessed for adequacy to receive sedatives. The heart rate, respiratory rate, oxygen saturations, blood pressure, adequacy of pulmonary ventilation,and response to care were monitored throughout the procedure. The physical status of the patient was re-assessed after the procedure. After I obtained informed consent, the scope was passed under direct vision. Throughout theprocedure, the patient's blood pressure, pulse, and oxygen saturations were monitored continuously.The Colonoscope was introduced through the anus and advanced to the cecum, identified by appendiceal orifice and ileocecal valve. The colonoscopy was performed without difficulty. Findings: Hemorrhoids were found on perianal exam. Two sessile polyps were found in the transversecolon. The polyps were 7 to 8 mm in size. These polypswere removed with a cold snare. Resection and retrieval were complete. Verification of patientidentification for the specimen was done. Estimated blood loss was minimal. The exam was otherwise without abnormality ondirect and retroflexion views. Procedure Code(s): --- Professional --- 96359, Colonoscopy, flexible; with removal of tumor(s), polyp(s), or other lesion(s) by snare technique Diagnosis Code(s): --- Professional --- D12.3, Benign neoplasm of transverse colon (hepatic flexure or splenic flexure) Z12.11, Encounter for screening for malignantneoplasm of colon K64.9, Unspecified hemorrhoids CPT copyright 2020 [employer]. All rights reserved. The codes documented in this report are preliminary and upon online activist reviewmay be revised to meet current compliance requirements. BROWN Sparks DO 05/04/2024 12:31:06 PM This report has been signed electronically.Brown Sparks DO Number of Addenda: 0 Note Initiated On: 05/04/2024 12:04 PM Scope Withdrawal Time: 0 hours 6 minutes 41 seconds Scope In: 12:18:17 PM Scope Out: 12:29:19 PM Endoscopy Department at [facility] - [address] [place] [id number] IMPRESSION: - Hemorrhoids found on perianal exam. - Two 7 to 8 mm polyps in the transverse colon, removed with a cold snare. Resected andretrieved. - The examination was otherwise normal on directand retroflexion views. Recommendation: - - Discharge patient to home. - High fiber diet. - Continue present medications. - Await pathology results. - Repeat colonoscopy for surveillance based on pathology results. Brown Sparks DO GI~PROCEDURE ORDERABLES Final Re sult * Hepatitis C Screening (06/24/2023) Hepatitis C Screening Abstracted Historical Provider HEALTH MAINTENANCE Final Result * Lipid panel (06/24/2023) LDL/HDL Ratio 0 Comment:No Interpretation Triglycerides 0 mg/dL Comment:No Interpretation Cholesterol 0 mg/dL Comment:No Interpretation HDL 0 mg/dL Comment:No Interpretation LDL Cholesterol 0 mg/dL Comment:No Interpretation Blood Venous blood specimen / Unknown Historical Provider LAB BLOOD ORDERABLES Di l Result from Last 3 Months or Most Recently Relevant to Health Maintenance Insurance [facility] MEDICARE Member Subscriber Plan / Payer (Ef fective 2015-Present) Name:Star Khan Relation to Subscriber:Self Name:Star Kahn Payer ID:[id number] Group ID:[id number] Type:Not on file Address: [address] [place] [id number] Advance Directives Documents on File Type Date Recorded Patient Civil Draftsman Expl anation Health Care Decision (hx) 10/04/2022 AD JARQUIN DIRECTIVE Health Care Decision (hx) 10/04/2022 AD JARQUIN DIRECTIVE Health Care Decision (hx) 10/04/2022 AD JARQUIN DIRECTIVE Health Care Decision (hx) 10/04/2022 AD JARQUIN DIRECTIVE Care Teams Cardiovascular Technologist Relationship Specialty Start Date End Date Francesco Shaffer MD [address] [place] [address] PCP - General 09/06/22
[2024-09-30 20:00] VITALS: BP 140/86; PULSE 73; RESP 16; TEMP 36.8; O2SAT 98
[2024-09-30 21:23] LABS: Troponin-I High Sensitivity 3.6 ng/L (<3.5-35.0)
[2024-09-30 21:42] VITALS: BP 140/86; PULSE 73; RESP 16; TEMP 36.8; O2SAT 98
== END 2024-09-30 21:42 | disposition home or self-care (01) ==
PROVIDERS: Physician Assistant Medical; Emergency Provider Emergency Medicine
DX: J18.0 Bronchopneumonia, unspecified organism (principal); R05.9 Cough, unspecified; R07.89 Other chest pain; R50.9 Fever, unspecified
CPT/HCPCS: 36415; 71046; 80048; 80076; 84484; 85025; 87637; 93005; 99283; 99284

== ENCOUNTER → 2024-09-30 11:50 | Outpatient (BNV) | payer OTHER, SELFPAY | PROVIDERS: Emergency Provider Emergency Medicine; Visit Provider Internal Medicine Cardiovascular Disease | DX: R07.89 Other chest pain (principal) | CPT/HCPCS: 93010 ==

== ENCOUNTER → 2024-09-30 11:50 | Outpatient (BNV) | payer OTHER, SELFPAY | PROVIDERS: Visit Provider Radiology Diagnostic Radiology | DX: R50.9 Fever, unspecified (principal) | CPT/HCPCS: 71046 ==

== ENCOUNTER 2024-10-11 14:13 | Emergency (ER) | payer OTHER, SELFPAY ==
--- NOTE | ~2024-10-11 | XR_ITS ---
EXAMINATION: XR CHEST CLINICAL INFORMATION: chest pain COMPARISON: 09/30/2024. TECHNIQUE: 2 views of the chest were obtained. FINDINGS: The cardiac, hilar, and mediastinal contours are normal. The lungs are clear bilaterally. Stable 9 mm calcified granuloma in the right upper lobe. There is no pneumothorax or pleural effusion. There is no focal osseous or soft tissue abnormality. XR/XR chest 2V IMPRESSION: No active pulmonary disease. Electronically signed by: Woody Harley MD 10/11/2024 03:06 PM EDT
--- NOTE | ~2024-10-11 | CT_ITS ---
CLINICAL HISTORY: pluritic chest pain, elevated D dimer CT angiography chest with contrast. 3D Postprocessing. Comparison: CT - CT ANGIO CHEST PE PROTOCOL - 10/11/24 18:29 EDT Findings: The heart is normal size. RV/LV ratio is normal. Calcification of the coronary vasculature. The thoracic aorta is normal caliber. No acute pulmonary embolus. The visualized thyroid and mediastinum are unremarkable. No evidence of pneumonia or edema. Calcified right upper lobe nodule is present. Mild diffuse basilar predominant bronchial wall thickening. Mild basilar predominant ground-glass pulmonary opacity. Visualized portions of the upper abdomen demonstrate splenic calcifications and are otherwise unremarkable. No acute fractures. IMPRESSION: 1. No pulmonary embolus. 2. Mild bronchopneumonia. 3. Coronary artery disease. This document has been electronically signed by: Rocío Dias MD on 10/11/2024 19:13:37
[2024-10-11 14:18] VITALS: BP 139/87; PULSE 83; RESP 16; TEMP 36.6; O2SAT 98; BMI 27.8
--- NOTE | 2024-10-11 14:18 | ED.GENADULT ---
HPI - General Adult General Chief complaint: Chest Pain Stated complaint: l sided upper chest pain at night Time Seen by Provider: 10/11/24 16:50 History of Present Illness ED Provider: Delio Benoit PA-C HPI narrative: 74-year-old male with medical history of HTN, HLD, MA with stent placement 2020, HIV+, presents to the ED due to 24 hours of chest pain. Patient states left-sided chest pain began last night while lying in bed initially radiated to back but radiation has now resolved. Patient states left-sided chest pain is worse when walking, with deep inspiration and describes pain as a constant tightness of the left side of his chest. This episode of chest pain is not associated with nausea, diaphoresis, syncope. Denies shortness of breath, nausea, vomiting, abdominal pain, dark/tarry stool MD complaint: L side chest pain Related Data Previous Rx's ?Medication ?Instructions ?Recorded albuterol sulfate 90 mcg/actuation 2 inh inhalation Q4-6H PRN 09/30/24 breath activated powder inhaler shortness of breath or wheezing #1 (ProAir RespiClick) ea azithromycin 250 mg tablet See Rx Instructions PO .COMPLEX #6 09/30/24 (Zithromax) tabs prednisone 20 mg tablet 20 mg PO BID #10 tabs 09/30/24 amoxicillin 875 mg-potassium 1 tab PO Q12H #19 tabs 10/11/24 clavulanate 125 mg tablet doxycycline hyclate 100 mg capsule 100 mg PO BID #19 caps 10/11/24 Allergies Allergy/AdvReac Type Severity Reaction Status Date / Time No Known Allergies Allergy Verified 10/11/24 14:19 Review of Systems Review of Systems: CONST: Negative for fever, body aches and chills. HENT: Negative for neck pain/stiffness, headache, congestion, sore throat, swelling. EYES: Negative for discharge/pain or vision changes. RESP: Negative for cough/hemoptysis and shortness of breath. CV: Negative chest pain, difficulty breathing, palpitations. POS L sided chest pain ABD: Negative pain, nausea, vomiting. : Negative increase frequency, dysuria, blood in urine or stool. MUSC: Negative for muscle aches, edema. SKIN: Negative rash, lesions/sores. NEURO: Negative headache, dizziness, weakness. Yes all other systems are reviewed and are negative PMFSH Past Medical History Attestation statement: The following information was validated with the patient. Source: old records reviewed and nursing notes reviewed Social History Social History Advance Directives: No Advance Directives Information Provided: Yes Do you have a plan to hurt others: No Plan Physical Exam ED Vital Signs: Vital Signs - 24 hr 10/11/24 14:18 10/11/24 17:15 10/11/24 19:02 Temperature 97.9 F 98.2 F 97.8 F Pulse Rate 83 61 72 Respiratory Rate 16 14 12 Blood Pressure 139/87 145/92 H 160/87 H Pulse Oximetry 98 99 98 Oxygen Delivery Method Room Air Room Air Room Air BMI result Body Mass Index 27.8 GENERAL APPEARANCE: ?AxOx4, generally well-appearing, no acute distress. HEENT: ?NC, AT. MMM. EOMI, clear conjunctiva, oropharynx clear. NECK: ?Supple without lymphadenopathy.? No stiffness or restricted ROM. HEART:? Normal rate and regular rhythm, normal S1/S2, no m/r/g, TTP over L chest 1 cm medial to nipple line, no overlying skin changes LUNGS:? CTAB, moving air well. No crackles or wheezes are heard. ABDOMEN: ?Soft, nontender, nondistended with good bowel sounds heard. BACK: No CVAT, no obvious deformity. EXTREMITIES: ?Without cyanosis, clubbing or edema. No calf tenderness, negative Homans' sign NEUROLOGICAL: ?Grossly nonfocal. Alert and oriented, moving all 4 extremities. Observed to ambulate with normal gait. Skin: ?Warm and dry without any rash. Course Course Course Narrative: Rapid medical examination performed in triage by Holly Alba PA-C. Patient is a 74 year old assigned male at presenting to the emergency department with left upper chest pain. Detailed physical exam and review of systems are deferred to the surveillance sensor operator. EKG, labs, imaging, swabs ordered. Patient placed back in the waiting room pending room availability and results. Reevaluation(s) Reevaluation #1: Tanenr Jordan PA-C have accepted care of the patient and signed out pending CTA of the chest and final disposition CTA chest:Findings: The heart is normal size. RV/LV ratio is normal. Calcification of the coronary vasculature. The thoracic aorta is normal caliber. No acute pulmonary embolus. The visualized thyroid and mediastinum are unremarkable. No evidence of pneumonia or edema. Calcified right upper lobe nodule is present. Mild diffuse basilar predominant bronchial wall thickening. Mild basilar predominant ground-glass pulmonary opacity. Visualized portions of the upper abdomen demonstrate splenic calcifications and are otherwise unremarkable. No acute fractures. IMPRESSION: 1. No pulmonary embolus. 2. Mild bronchopneumonia. 3. Coronary artery disease. I have reviewed findings with the patient, he states he is having cough and cold symptoms, expelling green colored sputum. He states he was treated for bronchitis 2 weeks ago, however his symptoms have persisted, he still complains of subjective fevers at home. In review of his labs, he has no leukocytosis. On exam, he has coarse breath sounds posterior bases that we will clear. Given he is still symptomatic, with findings of mild bronchopneumonia on CTA, we will treat with Augmentin and doxycycline, he had monotherapy last time. Medications Administered Discontinued Medications Generic Name Dose Route Start Last Admin Trade Name Freq PRN Reason Stop Dose Admin Lactated Ringer's 1,000 mls @ 999 mls/hr 10/11/24 17:40 10/11/24 18:08 Lr IV 10/11/24 18:40 999 mls/hr .Q1H1M ONE Administration Acetaminophen 1,000 mg in 100 mls @ 400 mls/hr 10/11/24 18:18 10/11/24 19:06 Ofirmev IV 10/11/24 18:32 400 mls/hr ONCE ONE Administration Iohexol 100 ml 10/11/24 18:40 10/11/24 18:40 Iohexol 350 Mg/Ml 100 Ml Infus..Btl IV 10/11/24 18:41 65 ml ONCE ONE Administration Medical Decision Making Medical Decision Making MDM Narrative: 74-year-old male with medical history of HTN, HLD, MA with stent placement 2020, HIV+, presents to the ED due to 24 hours of chest pain. Patient states left-sided chest pain began last night while lying in bed initially radiated to back but radiation has now resolved. Patient states left-sided chest pain is worse when walking, with deep inspiration and describes pain as a constant tightness of the left side of his chest. This episode of chest pain is not associated with nausea, diaphoresis, syncope. VSS, BP 139/87, pulse rate of 83, respiratory rate 16, afebrile with oral temp of 97.9, O2 saturation 98 percent on room air. Physical exam reveals lungs clear to auscultation bilaterally, cardiac exam reveals normal rate and rhythm without murmurs/rubs/gallops, TTP of left chest wall approximately 1 centimeter medial to nipple line, no overlying skin changes. Extremities without edema, erythema, no calf tenderness, Homans sign negative Course 18:20- EKG reveals normal sinus rhythm, when comparison to prior taken on 09/30/2024 no changes found. Initial troponin 5.0, 2nd troponin without a positive delta at 5.3- less likely ACS Patient with gradual onset of chest pain initially radiated to back, has now resolved, hemodynamically stable, without tachycardia, patient well-appearing- less likely aortic dissection Labs without leukocytosis/leukopenia, H&H stable with hemoglobin of 13.3, hematocrit of 39.9, mild transaminitis with AST of 55, ALT of 132, creatnine of 1.56- will give 1L IV fluids Viral serology negative- less likely viral illness L sided chest pain radiating to back, with radiation now relieved, lipase WNL- less likely pancreatitis D-dimer elevated at 1544 with age adjusted D-dimer at 740, due to this finding, chest pain exacerbated with deep inspiration will evaluate with CTA chest Patient being signed outto my colleague CLAUDIO Jordan who will resume care of the patient. Differential Diagnosis Differential Diagnoses: The differential diagnosis associated with the presentation includes ACS Aortic dissection PE viral illness pancreatitis atypical chest pain Admission/Observation Consideration of admission/observation: Escalation of care including admission/observation considered Lab Data MDM Lab Attestation statement: I reviewed the patient's lab results. 10/11/24 14:46 10/11/24 14:46 Labs: Lab Results 10/11/24 10/11/24 10/11/24 Range/Units 14:46 14:48 17:19 WBC 6.1 (4.8-10.8) X10*3/uL RBC 4.27 L (4.60-5.80) X10*6/uL Hgb 13.3 L (14.0-18.0) g/dl Hct 39.9 L (42.0-52.0) % MCV 93.4 (80.0-98.0) fL MCH 31.1 (27.0-33.0) pg MCHC 33.3 (31.0-36.0) g/dl RDW 12.9 (11.0-16.0) % Plt Count 180 (160-400) X10*3/uL MPV 9.6 (9.4-12.4) fL Immature Gran % (Auto) 4.1 H (0.0-0.4) % Neut % (Auto) 54.6 (45-73) % Lymph % (Auto) 31.2 (20-40) % Vilas % (Auto) 7.1 (2-11) % Eos % (Auto) 2.5 (0-4) % Baso % (Auto) 0.5 (0-2) % Lymph # (Auto) 1.9 (1.2-4.9) X10*3/uL Vilas # (Auto) 0.4 (0.1-1.2) X10*3/uL Eos # (Auto) 0.2 (0.0-0.4) X10*3/uL Baso # (Auto) 0.0 (0.0-0.2) X10*3/uL Abs Immat Gran (auto) 0.25 H (0.00-0.03) X10*3/uL Absolute Neuts (auto) 3.3 (2.0-8.3) x10*3/uL Absolute Nucleated RBC 0.000 (0.0-0.012) X10*3/uL Nucleated RBC % (auto) 0.0 (0.0-0.2) /100WBC PT 11.1 (10.9-12.4) SEC INR 1.0 (0.9-1.1) D-Dimer High Sensitivty 1544 NG/ML Sodium 140 (135-145) mmol/L Potassium 3.8 (3.3-5.1) mmol/L Chloride 106 (96-108) mmol/L Carbon Dioxide 27 (22-29) mmol/L Anion Gap 11 L (12-20) BUN 14 (9-16) mg/dL Creatinine 1.56 H (0.5-1.4) mg/dL Estim Creat Clear Calc 39.4 Estimated GFR 44 Random Glucose 125 H (60-115) mg/dL Calcium 8.8 (8.4-10.2) mg/dL Magnesium 1.9 (1.6-2.6) mg/dL Total Bilirubin 0.6 (0.0-1.0) mg/dL AST 55 H (5-37) U/L ALT 132 H (0-40) U/L Alkaline Phosphatase 84 (39-117) U/L Troponin I High Sens 5.0 5.3 (<3.5-35.0) ng/L Total Protein 7.1 (6.5-8.0) g/dL Albumin 4.1 (3.5-5.0) g/dL Lipase 48 (8-78) U/L COVID-19 (ALEN) Negative (Negative) COVID-19 Clin Com See Note Influenza Type A (PCR) NEGATIVE (Negative) Influenza Type B (PCR) NEGATIVE (Negative) RSV RNA Qual (PCR) NEGATIVE (Negative) SARS-CoV-2 RNA (RT-PCR) NEGATIVE (Negative) Independent Interpretation I performed an independent interpretation of an: EKG Interpretation: I personally interpreted the EKG which reveals a normal sinus rhythm without ST-elevation/depression, T-wave abnormality, dysrhythmia, prolonged QTC Vent. Rate : 78 BPM Atrial Rate : 78 BPM P-R Int : 146 ms QRS Dur : 86 ms QT Int : 366 ms P-R-T Axes : 53 -10 5 degrees QTcB Int : 417 ms Normal sinus rhythm Minimal voltage criteria for LVH, may be normal variant ( R in aVL ) Borderline ECG When compared with ECG of 30-Sep-2024 12:01, No significant change was found I personally interpreted the CXR which reveals a normal cardiomediastinal silhouette, no pleural effusion, pulmonary edema, infiltrates or consolidations, I agree with the radiologist's interpretation Radiology Impression Discussion of test interpretation with radiology: I have reviewed the radiologist's reading. Radiologist Impression: CXR FINDINGS: The cardiac, hilar, and mediastinal contours are normal. The lungs are clear bilaterally. Stable 9 mm calcified granuloma in the right upper lobe. There is no pneumothorax or pleural effusion. There is no focal osseous or soft tissue abnormality. XR/XR chest 2V IMPRESSION: No active pulmonary disease. Electronically signed by: Woody Harley MD 10/11/2024 03:06 PM EDT RP Dictated By: Woody Harley MD Signed By: <Electronically signed by Woody Halrey MD in OV> 10/11/24 1506 CTA Chest External Record Review External record reviewed: Inpatient record, Office record and Outpatient record Chronic Conditions Patient?s care impacted by: Other (HTN, HLD, MA with stent placement 2019, HIV+) Social Determinants Patient?s care significantly limited by Social Determinants of Health including: Other Social Determinant of Health Discharge Plan Discharge Clinical Impression: Atypical chest pain, Bronchopneumonia Patient Disposition: Home, Self-Care Instructions: Community Acquired Pneumonia (ED), Noncardiac Chest Pain (ED) Additional Instructions: You were found to have bronchopneumonia on the CT of your chest. There were no other acute findings. See home care instructions. Take the Augmentin as directed, take the doxycycline as directed. Use [id number] Mucinex as needed for your cough. The Mucinex we will help thin your secretions, making your cough more productive. Follow up with your primary care provider in a week. Prescriptions: New doxycycline hyclate 100 mg capsule 100 mg PO BID Qty: 19 0RF amoxicillin-pot clavulanate 875-125 mg tablet 1 tab PO Q12H Qty: 19 0RF No Action azithromycin [Zithromax] 250 mg tablet See Rx Instructions .ROUTE .COMPLEX Qty: 6 0RF Rx Instructions: For 250 mg dose pack: take 500 mg today (day 1), then 250 mg for 4 days (days 2-5) prednisone 20 mg tablet 20 mg PO BID Qty: 10 0RF ProAir RespiClick 90 mcg/actuation aerosol powdr breath activated 2 inh inhalation Q4-6H PRN (Reason: shortness of breath or wheezing) Qty: 1 0RF Referrals: [facility] [Provider Group] Print Language: Tunisian
--- NOTE | 2024-10-11 14:19 | ECG_ITS ---
Test Reason : chest pain Blood Pressure : */* mmHG Vent. Rate : 78 BPM Atrial Rate : 78 BPM P-R Int : 146 ms QRS Dur : 86 ms QT Int : 366 ms P-R-T Axes : 53 -10 5 degrees QTcB Int : 417 ms Normal sinus rhythm Minimal voltage criteria for LVH, may be normal variant ( R in aVL ) Borderline ECG When compared with ECG of 30-Sep-2024 12:01, No significant change was found Referred By: Holly Alba Electronically Signed By: CHELLY METZGER
[2024-10-11 15:00] LABS: MANUAL DIFF FLAG NO
[2024-10-11 15:02] LABS: Hematocrit 39.9 % (42.0-52.0); Hemoglobin 13.3 g/dl (14.0-18.0); Imm Gran Abs Auto 0.25 X10*3/uL (0.00-0.03); Imm Gran Pct Auto 4.1 % (0.0-0.4); Lymphocytes Absolute Auto 1.9 X10*3/uL (1.2-4.9); Mean Corpuscular HGB Conc 33.3 g/dl (31.0-36.0); Mean Corpuscular Hemoglobin 31.1 pg (27.0-33.0); Mean Corpuscular Volume 93.4 fL (80.0-98.0); NRBC Abs Auto 0.000 X10*3/uL (0.0-0.012); NRBC Pct Auto 0.0 /100WBC (0.0-0.2); Platelet Count 180 X10*3/uL (160-400); Red Blood Count 4.27 X10*6/uL (4.60-5.80); White Blood Count 6.1 X10*3/uL (4.8-10.8)
[2024-10-11 15:15] LABS: Alanine Aminotransferase 132 U/L (0-40); Albumin Level 4.1 g/dL (3.5-5.0); Alkaline Phosphatase 84 U/L (39-117); Anion Gap 11 (12-20); Aspartate Amino Transferase 55 U/L (5-37); Blood Urea Nitrogen 14 mg/dL (9-16); Calcium 8.8 mg/dL (8.4-10.2); Carbon Dioxide 27 mmol/L (22-29); Chloride 106 mmol/L (96-108); Creatinine Clr Calc Pharmacy 39.4; Estimated Glomerular Filt Rate 44; Magnesium 1.9 mg/dL (1.6-2.6); Potassium 3.8 mmol/L (3.3-5.1); Sodium 140 mmol/L (135-145); Total Protein 7.1 g/dL (6.5-8.0)
[2024-10-11 15:16] LABS: COVID-19 Test Negative (Negative); IDNOW Serial# 55D5AD1C
[2024-10-11 15:21] LABS: Troponin-I High Sensitivity 5.0 ng/L (<3.5-35.0)
[2024-10-11 15:37] LABS: Resp Syncy Virus RNA Qual PCR NEGATIVE (Negative); SARS COV2 PCR INHOUSE NEGATIVE (Negative)
[2024-10-11 15:44] LABS: INTERNATIONAL NORM RATIO 1.0 (0.9-1.1); Prothrombin Time 11.1 SEC (10.9-12.4)
[2024-10-11 17:15] VITALS: BP 145/92; PULSE 61; RESP 14; TEMP 36.8; O2SAT 99
[2024-10-11 17:31] LABS: Lipase 48 U/L (8-78)
[2024-10-11 17:39] LABS: D Dimer High Sensitivity 1544 NG/ML
[2024-10-11 17:42] LABS: Troponin-I High Sensitivity 5.3 ng/L (<3.5-35.0)
[2024-10-11] MEDS: Lactated Ringers 1,000 ML 999 ML IV (18:08)
--- OUTSIDE RECORDS SUMMARY | 2024-10-11 18:16 | XMS_ITS | Encounter Summary ---
Author Organization [facility] Address [address] [facility] [address] [place] [address] Phone Care Team Providers Care Surveillance Investigator Name Role Phone Unavailable Primary Care Provider Unavailabl e Encounter Details Date Type Department Care Team (Late Contact Info) Description 07/15/2023 Documentation Only [facility] [address] [place] [address] [place], [place] [address] [place] [address] Social History Tobacco Use Types Packs/Day Years [...] Encounters Date Type Department Care Team (Late st Contact Info) Description 11/01/2024 2:00 PM EDT Office Visit [facility] [address] [place] [address] Zi Das MD [address] [place] [address] [place] [address] documented as of this encounter Visit Diagnoses Not on filedocumented in this encounter
--- OUTSIDE RECORDS SUMMARY | 2024-10-11 18:16 | XMS_ITS | Patient Health Record ---
Author Organization [facility] Address [address] [place], [place] [id number] Care Team Providers Care Map Colorer Name Role Phone [facility] Pro[facility] maria guadalupe [phone] Lidia Gutiérrez Unavailable [phone] Patti Arreola Unavailable Reason For Referral No Information Encounters Encounter Location Date Provider Diagnosis [facility] [address] [place], [place] [phone] 09/07/2024 Patti Arreola [facility] [address] [place], [place] [phone] 10/01/2024 Patti Arreola [facility] [address] [place] [phone] 07/09/2024 Lidia Gutiérrez Plan Of Treatment No Information Insurance Providers Payer Name Payer Address Payer Phone Subscriber Number Group Number Insured Name Patient Relationship to Insured Coverage Start Date Coverage End Date [facility] [address] [place] [phone] [id number] [employer] Self - patient is the insured
--- OUTSIDE RECORDS SUMMARY | 2024-10-11 18:16 | XMS_ITS | Encounter Summary ---
Author Organization [facility] Address [address] [facility] [phone] Phone Care Team Providers Care Machine Shop Inspector Name Role Phone Unavailable Primary Care Provider Unavailabl e Reason for Visit * Reason Comments Med Refill Encounter Details Date Type Department Care Team (Late Contact Info) Description 01/03/2023 Refill [facility] [address] [facility] [address] [phone] Benja Peace MD [address] [facility] [address] [phone] Stage 3a chronic kidney disease (HCC) [...] Visit [facility] [place], [address] [place] [address] Zi Das MD [address] [facility] [place] [address] documented as of this encounter Visit Diagnoses Diagnosis Stage 3a chronic kidney disease (HCC) documented in this encounter
--- OUTSIDE RECORDS SUMMARY | 2024-10-11 18:16 | XMS_ITS | Clinical Summary ---
Author Organization [facility] Address [address] [place] [address] Phone Care Team Providers Care Rn Diabetes Educator Name Role Phone Francesco Shaffer MD Primary Care Provider [phone] Allergies No known active allergies Medications [...] disease) 01/01/2022 HIV (human immunodeficiency virus infection) ([facility] V24, [facility] V28) 01/01/2022 Insomnia 01/01/2022 Primary hypertension 01/01/2022 Overview (01/07/2024): Last Assessment & Plan: Patient's blood pressure is well controlled today with a reading 128/82. We will continue his current medication regimen. Seasonal allergies 01/01/2022 Thoracic aortic aneurysm, wi thout rupture, unspecified ([facility] V24) 01/01/2022 Overview (01/07/2024): Last Assessment & [...] - 08/26/2024 11:59 PM EDT Hospital Encounter [facility] CT Scan [address] [place] [address] Infrarenal abdominal aortic aneurysm (AAA) without rupture ([facility] V24) Discharge Disposition: Home or Self Care from Last 3 Months Immunizations Name Administration Dates Next Due Moderna SARS-CoV-2 COVID-19, mRNA, LNP-S, preservative free 05/06/2020,04/08/2020 Surgical History Surgery Date Site/Laterality Comments OTHER SURGICAL HISTORY 10/02/2022 Right PROCEDURE: MI OPN FEM ART EXPOS DLVR EVASC PROSTH UNI OTHER SURGICAL HISTORY 10/02/2022 Left PROCEDURE: MI OPN FEM ART EXPOS DLVR EVASC PROSTH UNI OTHER SURGICAL HISTORY 10/02/2022 PROCEDURE: MI EVASC RPR DPLMNT [id number] NDGFT APPENDECTOMY Medical History Medical History Date Comments HIV (human immunodeficiency virus infection) (CM S/HCC V24, CMS/HCC V28) Anxiety CAD (coronary artery disease) CKD (chronic kidney disease) Chronic hepatitis C (CMS/HCC V24, [facility]/HCC V28) Hyperlipidemia Hypertension Social History Tobacco Use [...] Signed Date: 08/26/2024 13:41 ET Workstation ID: [id number] Transcribed By: Self Edit Transcribed Date: 08/26/2024 12:55 ET Narrative 08/26/2024 1:41 PM EDT INDICATION: Abdominal aortic aneurysm FINDINGS: CTA of the abdomen and pelvis obtained with a total of 90 cc Isovue- 370 administered intravenously without incident. Scanner: [email or web address] [email or web address] 128 VCT Dose reduction technique: ASIR [...] 90 ccIsovue-370 administered intravenously without incident. Scanner: Eco Cuizineer 128 VCT Dose reduction technique: ASIR (Adaptive [...] Signed Date: 08/26/2024 13:41 ET Workstation ID: [id number] Transcribed By: Self Edit Transcribed Date: 08/26/2024 12:55 ET Oscar Salguero MD [facility] PROCEDURES Final Result * (ABNORMAL) Creatinine (08/25/2024 10:42 AM EDT) Creatinine 1.80(H) 0.70 - 1.30 mg/dL LAB CHEMISTRY METHOD 08/25/2024 1:56 PM EDT [facility] eGFR 39(L) >=60 mL/min/1. 73m2 LAB CHEMISTRY METHOD 08/25/2024 1:56 PM EDT [facility] Comment:Calculation based on the Chronic Kidney Disease Epidemiology Collaboration (CKD-EPI) equation refit without adjustment for race. Blood Venous blood specimen / Unknown Venipuncture / Unknown 08/25/2024 10:42 AM EDT 08/25/2024 11:16 AM EDT us Oscar Salguero MD LAB BLOOD ORDERABLES Final Resu lt Performing Organization Address City/[facility]/ZIP Co de Phone Number [facility] [address] [place] [address], [place] [phone] * BUN (08/25/2024 10:42 AM EDT) BUN 16 5 - 25 mg/dL LAB CHEMISTRY METHOD 08/25/2024 1:56 PM EDT [facility] Blood Venous blood specimen / Unknown Venipuncture / Unknown 08/25/2024 10:42 AM EDT 08/25/2024 11:16 AM EDT us Oscar Salguero MD LAB BLOOD ORDERABLES Final Resu lt Performing Organization Address [facility] Co de Phone Number [facility] [address] [place] [address], [place] [phone] * COLONOSCOPY Anesthesia - MAC; [facility] ENDOSCOPY (05/04/2024 12:30 PM EDT) Anatomical Region [...] pathology results. Narrative 05/04/2024 12:31 PM EDT [facility] GI Patient Name: Star Khan Procedure Date: 05/04/2024 12:04 PM Date of : 1950 Age: 74 Gender: Male Note Status: Finalized Attending MD: Brown Sparks DO, [id number] Procedure Date No Time: 05/04/2024 Procedure: Colonoscopy [...] the physician, the nurse, the anesthesiologist, the hospice executive director and the mold repair technician in the pre-procedure area in the [...] retroflexion views. Procedure Code(s): --- Professional --- 05388, Colonoscopy, flexible; with removal of tumor(s), polyp(s), or other lesion(s) by snare technique Diagnosis Code(s): --- Professional --- D12.3, Benign neoplasm of transverse colon (hepatic flexure or splenic flexure) Z12.11, Encounter for screening for malignant neoplasm of colon K64.9, Unspecified hemorrhoids CPT copyright 2020 [employer]. All rights reserved. The codes documented in this report are preliminary and upon emotionally impaired teacher review may be revised to meet current compliance requirements. BROWN Sparks DO 05/04/2024 12:31:06 PM This report has been signed electronically.Brown Sparks DO Number of Addenda: 0 Note Initiated On: 05/04/2024 12:04 PM Scope Withdrawal Time: 0 hours 6 minutes 41 seconds Scope In: 12:18:17 PM Scope Out: 12:29:19 PM Endoscopy Department at [facility] - [address] [place] [phone] Procedure Note Brown Sparks DO - 05/04/2024 [facility] GI Patient Name: Star Khan Procedure Date: 05/04/2024 12:04 PM Date of : 1950 Age: 74 Gender: Male Note Status: Finalized Attending MD: Brown Sparks DO, [id number] Procedure Date No Time: 05/04/2024 Procedure: Colonoscopy [...] the physician, the nurse, the anesthesiologist, the hospice executive director and thetechnician in the pre-procedure area in [...] retroflexion views. Procedure Code(s): --- Professional --- 41391, Colonoscopy, flexible; with removal of tumor(s), polyp(s), or other lesion(s) by snare technique Diagnosis Code(s): --- Professional --- D12.3, Benign neoplasm of transverse colon (hepatic flexure or splenic flexure) Z12.11, Encounter for screening for malignantneoplasm of colon K64.9, Unspecified hemorrhoids CPT copyright 2020 [employer]. All rights reserved. The codes documented in this report are preliminary and upon emotionally impaired teacher reviewmay be revised to meet current compliance requirements. BROWN Sparks DO 05/04/2024 12:31:06 PM This report has been signed electronically.Brown Sparks DO Number of Addenda: 0 Note Initiated On: 05/04/2024 12:04 PM Scope Withdrawal Time: 0 hours 6 minutes 41 seconds Scope In: 12:18:17 PM Scope Out: 12:29:19 PM Endoscopy Department at [facility] - [address] [place] [phone] IMPRESSION: - Hemorrhoids found on perianal exam. [...] Most Recently Relevant to Health Maintenance Insurance [facility] MEDIC[facility] Member Subscriber Plan / Payer (Ef fective 2015-Present) Name:Star Khan Relation to Subscriber:Self Name:Star Khan Payer ID:[id number] Group ID:[id number] Type:Not on file Address: [address] [place] [id number] Advance Directives Documents on File Type Date Recorded Patient National Account Director Expl anation Health Care Decision (hx) 10/04/2022 AD JARQUIN DIRECTIVE Health Care Decision (hx) 10/04/2022 AD JARQUIN DIRECTIVE Health Care Decision (hx) 10/04/2022 AD JARQUIN DIRECTIVE Health Care Decision (hx) 10/04/2022 AD JARQUIN DIRECTIVE Care Teams Rn Diabetes Educator Relationship Specialty Start Date End Date Francesco Shaffer MD [address] [place] [address] PCP - General 09/06/22
--- OUTSIDE RECORDS SUMMARY | 2024-10-11 18:16 | XMS_ITS | Clinical Summary ---
Author Organization [facility], Address [address] [place] [address] [place] [address] Phone Care Team Providers Care Bottle Gauger Name Role Phone Unavailable Primary Care Provider Unavailabl e Allergies No known active allergies Medications zolpidem (AMBIEN) 10 MG tablet Take 10 mg by mouth at bed time Active aspirin 81 MG chewable tablet Chew 81 mg 1 (one) time each day 12/21/2018 Active clonazePAM (KlonoPIN) 1 MG tablet Take 1 mg by mouth 2 (two) times a day 06/05/2019 Active rosuvastatin (CRESTOR) 40 MG tablet Take 40 mg by mouth 1 (one) time each day 06/04/2019 Active valACYclovir (VALTREX) 500 MG tablet Take 500 mg by mouth 1 (one) time each day Active tamsulosin (FLOMAX) 0.4 MG 24 hr capsuleIndicatio ns:Stage 3a chronic kidney disease (HCC) Take 1 capsule (0.4 mg total) by mouth 1 (one) time each day 90 capsule 2 02/04/2022 Active Dapagliflozin Propanediol (Farxiga) 10 MG tablet Take 10 mg by mouth 1 (one) time each day in the morning 30 tablet 5 04/28/2024 Active Active Problems Problem Noted Date Diagnosed Date Proteinuria 11/01/2020 Stage 3a chronic kidney disease 11/01/2020 Renal osteodystrophy 11/01/2020 Renal osteodystrophy 11/01/2020 Chronic kidney disease stage 3 08/16/2016 Overview (11/01/2020): Seen by [facility] Essential hypertension 12/19/2015 Overview (11/03/2023): Essential (primary) hypertension; snomeddescription: Hypertensive disorder; Report Immunity to Registry: Yes; ; Start Date : 11/30/2019 Essential (primary) hypertension; snomeddescription: Hypertensive disorder; Report Immunity to Registry: Yes; Creatinine level - finding 09/08/2015 Overview (11/01/2020): Sees [facility] Hepatitis C carrier 02/17/2007 Overview (11/03/2023): Hepatitis C carrier; snomeddescription: Hepatitis C carrier; Report Immunity to Registry: Yes; Notes: past ab positive; riba positive; HCV VL undetected 06/2012;2013; Resolved Problems Problem Noted Date Diagnosed Date Resolved Date Seasonal allergy 06/25/2018 11/01/2020 Hyperlipidemia 11/01/2016 11/01/2020 Overview (11/01/2020): [facility] uro Mixed hyperlipidemia with anais bartolucci Chronic viral hepatitis C 08/16/2016 Overview (11/01/2020): Followed by ID Aneurysm of thoracic aorta 02/16/2016 0 11/01/2020 Overview (11/01/2020): monitored by PVC for thoracic Aortic aneurysm currently measuring 3.7 cm Insomnia 02/06/2016 11/01/2020 Mixed anxiety and depressive disorder 02/06/2016 11/01/2020 Recurrent coronary arteriosc lerosis after percutaneous transluminal coronary angioplasty 02/06/2016 11/01/2020 Overview (11/01/2020): Being seen by [facility], will be monitored by [facility] for thoracic Aortic aneurysm currently measuring 3.7 cm Pt had a threatened inferior [place] in 01/2016- required stent eluting stent- dc on plavix, BB, statin Sees Cardiology [facility] Recent Exercise Myocardial Perfusion Scan 10/12/18 normal. Human immunodeficiency virus infection 08/29/2015 11/01/2020 Overview (11/01/2020): Since 1989 . Pt sees ID specialist Dr. Lynette Sawyer and is on medication Immunizations Immunization Administration Dates Next Due Moderna SARS-COV-2 05/06/2020,04/08/2020 Family History Medical History Relation Comments Heart disease Father Hypertension Father Heart disease Mother Hypertension Mother Relation Status Comments Father Mother Social History Tobacco Use Types Packs/Day Years [...] on file Sexual Orientation Not on file Last Filed Vital Signs Vital Sign Reading Time Taken Comments Blood Pressure 126/62 11/01/2020 1:15 PM EDT Pulse 66 11/01/2020 1:15 PM EDT Temperature - - Respiratory Rate - - Oxygen Saturation 99% 11/01/2020 1:15 PM EDT Inhaled Oxygen Concentration - - Weight 78.9 kg (174 lb) 07/25/2021 1:46 PM EDT Height 167.6 cm (5' 6 ) 11/01/2020 1:15 PM EDT Body Mass Index 28.08 11/01/2020 1:15 PM EDT Plan of Treatment Upcoming Encounters Date Type Department Care Team (Late st Contact Info) Description 11/01/2024 2:00 PM EDT Office Visit [facility] [address] [place] [phone] Zi Das MD [address] [place] [address] [place] [phone] Health Maintenance Due Date Last Done Comments Colorectal Cancer Screening: Annual FOBT 1999 Colorectal Cancer Screening: Colonoscopy 1999 Colorectal Cancer Screening: Sigmoidoscopy 1999 Hepatitis B Vaccine (1 of 3 - Risk 3-dose series) 2010 Pneumococcal Vaccine: 50+ Ye ars (3 of 3 - PCV) 09/03/2022 09/03/2021, 07/18/2016, 02/24/2013, Additional history exists Influenza Vaccine (#1) 2024 1, 11/05/2019, 10/30/2018, Additional history exists Pneumococcal Vaccine: Peds ( 0 to 5 Years) and At-Risk Patients (6 to 49 Years) Discontinued 09/03/2021, 07/18/2016, 02/24/2013, Additional history exists Insurance ([id number]) ([id number]) ([id number])
--- OUTSIDE RECORDS SUMMARY | 2024-10-11 18:16 | XMS_ITS | Encounter Summary ---
Author Organization [facility] Address [address] [facility] [address] [place] [address] Phone Care Team Providers Care Seed Trucker Name Role Phone Unavailable Primary Care Provider Unavailabl e Encounter Details Date Type Department Care Team (Late Contact Info) Description 03/17/2024 Documentation Only [facility] [address] [place] [address] [place], [place] [address] [place] [address] Social History Tobacco Use Types [...] Visit [facility] [address] [place] [address] Zi Das MD [address] [place] [address] [place] [address] documented as of this encounter Visit Diagnoses Not on filedocumented in this encounter
--- OUTSIDE RECORDS SUMMARY | 2024-10-11 18:16 | XMS_ITS | Encounter Summary ---
Author Organization [facility] Address [address] [facility] [address] [place] [address] Phone Care Team Providers Care Airport Screener Name Role Phone Unavailable Primary Care Provider Unavailabl e Encounter Details Date Type Department Care Team (Late Contact Info) Description 03/17/2024 Documentation Only [facility] [address] [place] [address] [place], [place] [address] [place] [address] Social History Tobacco Use Types [...] Visit [facility] [address] [place] [address] Zi Das MD [address] [place] [address] [place] [address] documented as of this encounter Visit Diagnoses Not on filedocumented in this encounter
--- OUTSIDE RECORDS SUMMARY | 2024-10-11 18:16 | XMS_ITS | Encounter Summary ---
Author Organization [facility] Address [address] [facility] [address] [place] [address] Phone Care Team Providers Care Blanket Winder Helper Name Role Phone Unavailable Primary Care Provider Unavailabl e Reason for Visit * Reason Comments Med Refill Encounter Details Date Type Department Care Team (Late Contact Info) Description 12/12/2022 Refill [facility] [address] [place] [address] Benja Peace MD [address] [facility] [address] [place] [address] Stage 3a chronic kidney disease [...] Visit [facility] [place], [address] [facility] [place] [address] Zi Das MD [address] [facility] [place] [address] documented as of this encounter Visit Diagnoses Diagnosis Stage 3a chronic kidney disease (HCC) documented in this encounter
--- OUTSIDE RECORDS SUMMARY | 2024-10-11 18:16 | XMS_ITS | Encounter Summary ---
Author Organization [facility] Address [address] [facility] [address] [place] [address] Phone Care Team Providers Care Mobile Equipment Mechanic Name Role Phone Unavailable Primary Care Provider Unavailabl e Encounter Details Date Type Department Care Team (Late Contact Info) Description 03/17/2024 Documentation Only [facility] [address] [place] [address] [place] [address] [place] [address] Social History Tobacco Use Types [...] Visit [facility] [address] [place] [address] Zi Das MD [address] [place] [address] [place] [address] documented as of this encounter Visit Diagnoses Not on filedocumented in this encounter
[2024-10-11] MEDS: iohexoL 350 MG/ML 100 ML INFUS..BTL IV (18:40)
[2024-10-11 19:02] VITALS: BP 160/87; PULSE 72; RESP 12; TEMP 36.6; O2SAT 98
[2024-10-11 19:58] VITALS: BP 160/87; PULSE 72; RESP 12; TEMP 36.6; O2SAT 98
== END 2024-10-11 19:58 | disposition home or self-care (01) ==
PROVIDERS: Physician Assistant Medical; Emergency Provider Emergency Medicine
DX: J18.0 Bronchopneumonia, unspecified organism (principal); R07.89 Other chest pain; I10 Essential (primary) hypertension; M54.50 Low back pain, unspecified; Z21 Asymptomatic human immunodeficiency virus [HIV] infection status; Z03.818 Encounter for observation for suspected exposure to other biological agents ruled out; Z79.899 Other long term (current) drug therapy
CPT/HCPCS: 36415; 71046; 71275; 80053; 83690; 83735; 84484; 85025; 85379; 85610; 87635; 87637; 93005; 96361; 96374; 99285; J0131; J7120; Q9967

== ENCOUNTER → 2024-10-11 14:19 | Outpatient (BNV) | payer OTHER, SELFPAY | PROVIDERS: Emergency Provider Emergency Medicine; Visit Provider Internal Medicine | DX: R07.9 Chest pain, unspecified (principal) | CPT/HCPCS: 93010 ==

== ENCOUNTER → 2024-10-11 14:19 | Outpatient (BNV) | payer OTHER, SELFPAY | PROVIDERS: Visit Provider Radiology Diagnostic Radiology | DX: R07.81 Pleurodynia (principal); I25.10 Atherosclerotic heart disease of native coronary artery without angina pectoris | CPT/HCPCS: 71046; 71275 ==

== ENCOUNTER 2024-12-06 13:58 | Outpatient (AMB) | payer OTHER, SELFPAY ==
--- NOTE | 2024-12-06 14:12 | A.OFFVIS_ITS ---
Vital Signs 12/06/24 14:13 Height 5 ft 5 in Weight 173 lb 4.533 oz BMI 28.8 BP 118/75 Blood Pressure Location Lt brachial Position Sitting Pulse 92 Pulse Source Monitor Intake Visit Reasons: new patient hx CAD from ED (KM) Insulation Applicator Required: No Audit Intern: Audit Intern Present Allergies No Known Allergies Allergy (Verified 12/06/24 14:18) HPI HPI new patient hx CAD from ED (): Details: Star is a 74-year-old male with past medical history of HIV, hypertension, hyperlipidemia, CAD with prior ME and coronary stent 2020 who was recently seen in the emergency room with chest discomfort. He ruled out for ACS and pulmonary embolism. His symptom did resolve and he was referred to Cardiology in follow- up. Today he presents for cardiology consultation and reports that he has seen a pier runner at [facility] but not in the last year. He now wants to follow with our office. He has not had any recurrent chest discomfort since the day of his emergency room visit in September. He has no shortness of breath, PND, orthopnea or edema. No heart palpitations, lightheadedness, presyncope, syncope. He reports doing only light physical activities and walks occasionally. He does take medications as directed. History of prior smoking, quit 30 years ago. Has alcohol 1 to 2 times a month. He reports a family history of heart disease but is unable to give details. His nephew Reji is present and assisting with Scottish translation at their request. [facility] Family History Mother Cardiac arrest Father No problems noted. Review of Systems Const All systems reviewed & are unremarkable except as noted in HPI and below ENT Denies dizziness Card Denies chest pain, Denies chest pain at rest, Denies chest pain with activity, Denies rapid heart rate, Denies pedal edema, Denies edema, Denies leg edema, Denies lightheadedness, Denies palpitations, Denies dyspnea, Denies dyspnea on exertion and Denies orthopnea Resp Denies cough, Denies dyspnea and Denies dyspnea on exertion GI Denies hematochezia and Denies change in stool character Musc Denies abnormal gait, Denies limited range of motion, Denies muscle cramps, Denies muscle weakness, Denies numbness, Denies radiating pain into limb, Denies stiffness and Denies tingling Neuro Denies abnormal gait, Denies dizziness, Denies numbness and Denies tingling Endo Denies palpitations Physical Exam Vital Signs: Last Vital Signs Pulse 92 12/06/24 14:13 BP 118/75 12/06/24 14:13 BMI result Body Mass Index 28.8 Const General: cooperative, healthy appearing, comfortable and no acute distress Orientation/consciousness: patient oriented x3 Neck Neck: Yes normal visual inspection and Yes no JVD Resp Effort & Inspection: normal respiratory effort Auscultation: clear to auscultation bilaterally, no crackles, no rales, no rhonchi and no wheezes Cardio Rate: regular rate Rhythm: regular rhythm Heart sounds: S1 normal heart sound present, S2 normal heart sound present, no gallops, no murmurs and no rubs Neuro General: patient oriented x3 Extrem General: Yes normal to inspection, No no pedal edema and No calf tenderness Psych Appearance: grossly normal Mental Status: mental status grossly normal Speech and movement: Normal speech and movement present Assessment & Plan Assessment & Plan (1) Coronary artery disease: Code(s): I25.10 - Atherosclerotic heart disease of [place] coronary artery without angina pectoris Category: Medical Plan: ER evaluation 10/11/2024 for left chest discomfort with radiation to the back. He ruled out for ACS and pulmonary embolism. EKG showed sinus rhythm with minimal voltage criteria for LVH. He has reported history of CAD, ME with coronary stent, unknown vessel. Currently no anginal symptoms. Will work on obtaining [place] [facility] [place] [facility]. At this time continue med management with aspirin, rosuvastatin and metoprolol. Signs and symptoms of angina reviewed with him. Cardiac testing if any will be ordered following review of his records. Cardiology follow-up 3 months, sooner if needed. (2) Stented coronary artery: Code(s): Z95.5 - Presence of coronary angioplasty implant and graft Category: Surgical Plan: As above (3) Chest discomfort: Code(s): R07.89 - Other chest pain Category: Medical Plan: Atypical chest discomfort, no reoccurrence since ED visit 10/11/2024. (4) Hospital discharge follow-up: Code(s): Z09 - Encounter for follow-up examination after completed treatment for conditions other than malignant neoplasm Category: Medical Plan: [facility] records reviewed (5) Hypertension: Code(s): I10 - Essential (primary) hypertension Category: Medical Plan: Blood pressure goal less than 130/80, well controlled at this time. Continue metoprolol. (6) Hyperlipidemia: Code(s): E78.5 - Hyperlipidemia, unspecified Category: Medical Plan: [place] LDL goal less than 70 in patient with CAD. Continue rosuvastatin. No lipid profile in our system. Will try to obtain from [facility]. Plan I discussed with the patient the importance of continuing his current medication regimen, including cholesterol medication, metoprolol, and aspirin, to manage his coronary artery calcification and prevent further cardiovascular events. We agreed on a follow-up in three months to review any new test results and adjust the treatment plan as necessary. I advised monitoring for any changes in symptoms, particularly regarding heart palpitations, and to report any significant changes. Medications: Discontinued azithromycin (Zithromax) Discontinued Reason: Patient Completed Course For 250 mg dose pack: take 500 mg today (day 1), then 250 mg for 4 days (days 2-5) 6 tabs 0RF prednisone Discontinued Reason: Patient no longer taking 20 mg PO BID 10 tabs 0RF amoxicillin-pot clavulanate 875-125 mg Discontinued Reason: Patient no longer taking 1 tab PO Q12H 19 tabs 0RF doxycycline hyclate Discontinued Reason: Patient Completed Course 100 mg PO BID 19 caps 0RF Patient Instructions: - Continue taking cholesterol medication, metoprolol, and aspirin as prescribed. - Monitor for any changes in symptoms, especially chest discomfort or sob, and report them. - Follow up in three months for review of test results and treatment plan adjustment. Patient was informed and verbally consented to the use of an ambient scribe for clinic note documentation during this visit. Visit time spent on chart review, interview, assessment, orders, documentation. Coding Level of Care Code New Pt Level 4 (34788) Complex EM visit Add On G2211 Diagnoses Coronary artery disease I25.10 Stented coronary artery Z95.5 Chest discomfort R07.89 Hospital discharge follow-up Z09 Hypertension I10 Hyperlipidemia E78.5 Time Spent (min) 32
[2024-12-06 14:13] VITALS: BP 118/75; PULSE 92; BMI 28.8
== END 2024-12-06 14:49 | disposition home or self-care (01) ==
LOC: HO.HCS 13:58
PROVIDERS: Visit Provider Nurse Practitioner Family
DX: I25.10 Atherosclerotic heart disease of native coronary artery without angina pectoris (principal); Z95.5 Presence of coronary angioplasty implant and graft; R07.89 Other chest pain; Z09 Encounter for follow-up examination after completed treatment for conditions other than malignant neoplasm; I10 Essential (primary) hypertension; E78.5 Hyperlipidemia, unspecified
CPT/HCPCS: 99204; G2211

== ENCOUNTER → 2024-12-06 13:58 | Outpatient (BNVA) | payer OTHER, SELFPAY | PROVIDERS: Visit Provider Nurse Practitioner Family | DX: I25.10 Atherosclerotic heart disease of native coronary artery without angina pectoris (principal); R07.89 Other chest pain; Z95.5 Presence of coronary angioplasty implant and graft; I10 Essential (primary) hypertension; E78.5 Hyperlipidemia, unspecified | CPT/HCPCS: 99202 ==